=== PATIENT | female | born 1975 | race Two or more races ===

== ENCOUNTER 2024-03-11 08:56 | Emergency (ER) | payer MEDICAID, SELFPAY ==
[2024-03-11 09:04] VITALS: BP 106/71; PULSE 74; RESP 16; TEMP 37.1; O2SAT 97; BMI 29.8
--- NOTE | 2024-03-11 09:08 | XR_ITS ---
Examination: PA lateral chest 2 views TECHNIQUE: Upright PA lateral chest 2 views Exam date and time: February 08, 2025 0912 hours Comparison January 09, 2023 INDICATIONS: Coughing fever shortness of breath beginning 6 days ago. FINDINGS: Normal heart size Suspicious for mild pneumonia in the right middle lobe No pulmonary edema IMPRESSION: Suspicious for mild pneumonia in the right middle lobe
--- NOTE | 2024-03-11 09:09 | EDNOTE_ITS ---
Upper Respiratory Inf. RME/HPI General Chief Complaint: Flu Like Symptoms Stated Complaint: COUGH, DIFF BREATHING, BARRETO Time Seen by Provider: 03/11/24 09:10 Source: patient Arrival date/time: 03/11/24 08:56 48-year-old female with a history of hypertension presents to the emergency room with a chief complaint of cough, difficulty breathing, headache x 6 days. Mode of arrival: ambulatory Limitations: no limitations Related Data Home Medications ?Medication ?Instructions ?Recorded ?Confirmed lisinopril 20 1 tab PO QDAY 06/05/22 01/03/23 mg-hydrochlorothiazide 12.5 mg tablet clonazepam 0.5 mg tablet 1 mg PO BID PRN anxiety 12/10/23 12/10/23 Previous Rx's ?Medication ?Instructions ?Recorded acetaminophen 300 mg-codeine 15 mg 1 tab PO Q8H PRN pain #14 tabs 06/07/22 tablet acetaminophen 500 mg tablet 500 mg PO Q6H PRN fever or pain 06/07/22 #30 tabs acetaminophen 500 mg tablet 1,000 mg (2 x 500 mg) PO QID PRN 11/16/22 (Tylenol Extra Strength) pain #30 tabs hydroxyzine HCl 50 mg tablet 50 mg PO BID PRN anxiety #30 tabs 11/16/22 rizatriptan 10 mg disintegrating 10 mg PO Q2H PRN migraine headache 01/09/23 tablet (Maxalt-SOCIAL MEDIA EDITOR) #20 tabs diphenhydramine HCl 25 mg capsule 25 mg PO Q8H PRN allergic symptoms 03/24/23 (Benadryl) #30 caps magnesium hydroxide 400 mg/5 mL 20 ml PO TID PRN constipation #355 12/10/23 oral suspension (Milk of Magnesia) mL amoxicillin 875 mg-potassium 1 tab PO BID 7 days #14 tabs 03/11/24 clavulanate 125 mg tablet Allergies Allergy/AdvReac Type Severity Reaction Status Date / Time No Known Allergies Allergy Verified 09/13/23 11:43 Review of Systems Review of Systems Systems Reviewed: All systems reviewed, normal except as documented Constitutional Constitutional: Reports system reviewed and no additional complaints, except as documented, Denies fatigue, Denies fever(s), Reports headache(s) and Denies weakness Eyes Eyes: Reports system reviewed and no additional complaints, except as documented, Denies blurry vision and Denies change in vision ENT Ears, Nose, Mouth, and Throat: Reports system reviewed and no additional complaints, except as documented, Denies otalgia, Reports headache(s), Denies nasal congestion, Denies throat swelling and Denies vertigo Cardiovascular Cardiovascular: Reports system reviewed and no additional complaints, except as documented, Denies chest pain, Reports dyspnea and Denies dyspnea on exertion Respiratory Respiratory: Reports system reviewed and no additional complaints, except as documented, Denies chest congestion, Reports cough, Reports dyspnea, Denies d yspnea on exertion and Denies wheezing Gastrointestinal Gastrointestinal: Reports system reviewed and no additional complaints, except as documented, Denies abdominal pain, Denies cramping, Denies nausea and Denies vomiting Genitourinary Genitourinary: Reports system reviewed and no additional complaints, except as documented Musculoskeletal Musculoskeletal: Reports system reviewed and no additional complaints, except as documented and Denies back pain Integumentary/Breasts Skin/Breast: Reports system reviewed and no additional complaints, except as documented and Denies wounds Neurologic Neurologic: Reports system reviewed and no additional complaints, except as documented, Denies confusion, Reports headache(s), Denies lack of coordination, Denies vertigo and Denies weakness Psychiatric Psychiatric: Reports system reviewed and no additional complaints, except as documented, Denies anxiety, Denies confusion, Denies depression, Denies paranoia, Denies suicidal ideation and Denies tactile hallucinations Endocrine Endocrine: Reports system reviewed and no additional complaints, except as documented and Denies fatigue Hematologic/Lymphatic Hematologic/Lymphatic: Reports system reviewed and no additional complaints, except as documented and Denies lymphadenopathy Allergic/Immunologic Allergic/Immunologic: Reports system reviewed and no additional complaints, except as documented, Denies throat swelling, Denies urticaria and Denies wheezing Past Medical History Past Medical History NEUROLOGIC: Negative Neurological Disorders, Cerebrovascular Accident, Transient Ischemic Attacks (TIA), Dementia, Alzheimer's Disease, Parkinson's Disease, Brain Tumor, Meningitis, Seizures, Epilepsy, Multiple Sclerosis, Cerebral Palsy, Amyotrophic Lateral Sclerosis (ALS/Rubia Gehrig's), Guillain-[place] Syndrome, Spina Bifida, Paralysis, Peripheral Neuropathy, Smart's Palsy, Subdural Hematoma, Migraine, Head Trauma, Spinal Cord Injury or Traumatic Brain Injury CARDIAC: Positive Hypercholesterolemia, Edema and Hypertension; Negative Cardiac Disorders, Myocardial Infarction, Cardiac Arrhythmia, Atrial Fi brillation, Angina, Heart Murmur, Coronary Artery Disease, Atherosclerotic Heart Disease, Peripheral Vascular Disease, Aneurysm, Congestive Heart Failure, Congenital Heart Disease, Valvular Heart Disease, Rheumatic Fever, Cardiomyopathy, Pericarditis, Cellulitis, Deep Vein Thrombosis, Hypotension or Varicose Veins RESPIRATORY: Negative Chronic Obstructive Pulmonary Disease (COPD), Asthma, Bronchitis, Emphysema, Pneumonia, Pulmonary Fibrosis, Cystic Fibrosis, Tuberculosis, Pulmonary Embolism, Pulmonary Edema or Sleep Apnea GASTROINTESTINAL: Positive Colitis and Gastroesophageal Reflux Disease; Negative Gastrointestinal Disorders, Hepatitis, Cirrhosis, Pancreatitis, Celiac Disease, Gall Bladder Disease, Gastrointestinal Bleed, Esophageal Varices, Epps's Esophagus, Ulcerative Colitis, Diverticulitis, Diverticulosis, Ulcer, Colorectal Cancer, Irritable Bowel, Crohn's Disease, Obstructive Bowel, Hiatal Hernia, Hemorrhoids or Obesity GENITOURINARY: Negative Genitourinary Disorders, Renal Disease, Kidney Stones, Polycystic Kidney Disease, Neurogenic Bladder, Inguinal Hernia or Dialysis REPRODUCTIVE: Positive Previous Pregnancies; Negative Breast Cancer, Endometriosis, Genital Herpes, Gonorrhea, Pelvic Inflammatory Disease, Syphilis or Uterine Prolapse MUSCULOSKELETAL: Negative Musculoskeletal Disorders, Muscular Dystrophy, Myasthenia Gravis, Marfan's Syndrome, Bone Cancer, Arthritis, Rheumatoid Arthritis, Osteoporosis, Degenerative Disk Disease, Gout, Scoliosis, Carpal Tunnel Syndrome, Fibromyalgia, Fractures, Degenerative Joint Disease, Osteomyelitis or Poliovirus ENT: Negative Cataracts, Glaucoma, Blind, Retinal Detachment, Macular Degeneration, Ear Infection, Deafness, Head Trauma or Eye Prosthesis ENDOCRINE: Negative Endocrine Disorders, Diabetes Mellitus Type 1, Diabetes Mellitus Type 2, Hypoglycemia, Gavino's Syndrome, Reg's Disease, Hyperthyroidism, Hypothyroidism, Parathyroid Disease, Pituitary Disease, Systemic Lupus Erythematosus, Syndrome of Inappropriate Antidiuretic Hormone (SIADH), Adrenal Disease or Graves' Disease HEMATOLOGIC: Negative Blood Disorders, Anemia, Leukemia, Hemophilia, Thalassemia, Sickle Cell Disease or Clotting Problems PSYCHO/SOCIAL: Positive Anxiety; Negative Psychiatric Problems, Schizophrenia, Recreational Drug Use, Bipolar Disorder, Depression, Behavior Problems, Self-Mutilation, Attention Deficit Disorder, Attention Deficit Hyperactivity Disorder, Depression, Post Traumatic Stress Disorder or Eating Disorder OTHER HISTORY: Positive Measles; Negative Hospitalization, Autoimmune Disease, Down Syndrome, Autism, Developmental Delay, Shingles, Falls, Blood Transfusions, Blood Transfusion Reaction, Anesthesia Reactions, Organ Transplant, Chemotherapy, Radiation Therapy, Hyperbaric Therapy, MRSA, VRSA, Vancomycin-Resistant Enterococci, Human Immunodeficiency Virus (HIV), Chicken Pox, Mumps, Rubella ([place] Measles), Pertussis, Clostridium Difficile, Cancer, Breast Cancer, Cervical Cancer, Colorectal Cancer, Lung Cancer or Ovarian Cancer Family History FAMILY HISTORY: Positive Family Psychiatric Problems; Negative Family Respiratory Disorders, Family Cardiac Disorders, Family Gastrointestinal Problems, Family Cancer, Family Surgery or Family Anesthesia Reaction Surgical History SURGICAL: Positive Hysterectomy and Section; Negative Cardiac Surgery, Open Heart Surgery, Coronary Artery Bypass Graft, Valve Replacement, Vascular Surgery, Coronary Stent, Cardiac Catheterization, Pacemaker, Angiogram, Auto Implanted Cardiovert Defib, Carotid Endarterectomy, Endocrine Surgery, Thyroidectomy, Ear Surgery, Tympanostomy Tube, Eye Surgery, Nose Surgery, Oral Surgery, Tonsillectomy, Adenoidectomy, Cochlear Implant, Corneal Transplant, Throat Surgery, Abdominal Surgery, Tracheostomy, Gastric Bypass Surgery, Gastrostomy, Bowel Surgery, Nephrectomy, Joint Replacement, Amputation, Open Reduction Internal Fixation, Arthroscopy, Neurologic Surgery, Brain Shunt, Mastectomy, Lumpectomy, Tubal Ligation or Organ Transplant Social History SMOKING STATUS: Never smoker ED Exam General Limitations: Present no limitations General appearance: Present alert and in no apparent distress Head Head exam: Present atraumatic, normocephalic and normal inspection Eye Eye exam: Present normal appearance, PERRL and EOMI ENT ENT exam: Present normal exam, normal oropharynx and mucous membranes moist Neck Neck exam: Present normal inspection, full ROM and trachea midline Chest Chest inspection: Present normal inspection and symmetric chest wall rise Respiratory Respiratory exam: Present normal lung sounds bilaterally; Absent respiratory distress, wheezes, stridor, accessory muscle use or prolonged expiratory phase Cardiovascular Cardiovascular exam: Present regular rate, normal rhythm and normal heart sounds Abdominal Exam Abdominal exam: Present soft and normal bowel sounds Extremities Exam Extremities exam: Present normal inspection and full ROM Back Exam Back exam: Present normal inspection and full ROM Neurological Exam Neurological exam: Present alert, oriented X3 and CN II-XII intact Psychiatric Psychiatric exam: Present normal affect and normal mood Skin Skin exam: Present warm, dry, intact and normal color Course Quality Measures none Orders Category Date Time Status Bedside COVID-19 Antigen Test NOW Care 03/11/24 09:08 Completed Bedside Influenza A&B Antigen Test NOW Care 03/11/24 09:08 Completed XR chest 2V Stat Exams 03/11/24 09:08 Completed Vital Signs Vital signs: Vital Signs Temperature 98.7 F 03/11/24 09:04 Pulse Rate 74 03/11/24 09:04 Respiratory Rate 16 03/11/24 09:04 Blood Pressure 106/71 03/11/24 09:04 Pulse Oximetry (%) 97 03/11/24 09:04 Oxygen Delivery Method Room Air 03/11/24 09:04 O2 saturation 97% within normal limits Upper Respiratory Infection MDM Narrative MDM Narrative:: 48-year-old female with a history of hypertension presents to the emergency room with a chief complaint of cough, difficulty breathing, headache x 6 days. Clinically the patient appears nontoxic and in no apparent distress. Physical examination shows clear bilateral lung sounds with no wheezing stridor or respiratory distress. Chest x-ray was completed and shows early pneumonia. Antibiotics are sent to the patient's pharmacy patient was discharged and educated to follow-up with primary care provider and return to the emergency room for any evidence of worsening signs or symptoms Patient data External records reviewed:: [facility] previous records Clinical information provided by:: patient Social determinants that could affect healthcare access:: none Patient has the following chronic illnesses:: No chronic illness How is presenting disease/condition affected by chronic disease/condition?: no chronic disease Evaluation data The following diagnostics were reviewed and interpreted by me:: lab results and radiology exam(s) Lab and/or radiology exams considered but not ordered:: Labs and radiology exams considered and ordered Interpretation Summary: Chest [id number]: Normal heart size Suspicious for mild pneumonia in the right middle lobe No pulmonary edema IMPRESSION: Suspicious for mild pneumonia in the right middle lobe Medications / Prescriptions Medications or Prescriptions considered but not ordered:: Medication not given Medication administrations:: Medication not given Consultations Consultation(s) initiated? (list below): No Diagnosis Upper Respiratory Differential Diagnosis: upper respiratory infection, sinus itis, viral infection, influenza, pharyngitis and other (Community-acquired pneumonia) Most likely diagnosis given after review of the tests above:: Community-acquired pneumonia Admission Indicated Admission indicated?: not indicated Admission Request Was there a request for admission?: No Disposition Plan Disposition Plan: Discharge Discharge Attestation Discharge Attestation: The patient and all family members were given an opportunity to ask questions and understood the discharge instructions. Discharge instructions specifically effects, indications for sooner follow up or return to the emergency department, and the expected course of current diagnosis. Patient condition: Stable Discharge Plan Plan Patient Disposition: HOME (Self Care) Disposition Comment: Stable Prescriptions/Referrals Prescriptions/Med Rec: New amoxicillin-pot clavulanate 875-125 mg tablet 1 tab PO BID 7 Days Qty: 14 0RF No Action lisinopril-hydrochlorothiazide 20-12.5 mg Tablet 1 tab PO QDAY acetaminophen-codeine 300-15 mg tablet 1 tab PO Q8H PRN (Reason: pain) Qty: 14 0RF acetaminophen 500 mg tablet 500 mg PO Q6H PRN (Reason: fever or pain) Qty: 30 0RF hydroxyzine HCl 50 mg tablet 50 mg PO BID PRN (Reason: anxiety) Qty: 30 0RF acetaminophen [Tylenol Extra Strength] 500 mg tablet 1,000 mg PO QID PRN (Reason: pain) Qty: 30 0RF rizatriptan [Maxalt-[employer]IAL MEDIA EDITOR] 10 mg tablet,disintegrating 10 mg PO Q2H PRN (Reason: migraine headache) Qty: 20 0RF Rx Instructions: do not exceed 3 doses per 24 hrs diphenhydramine HCl [Benadryl] 25 mg capsule 25 mg PO Q8H PRN (Reason: allergic symptoms) Qty: 30 0RF clonazepam 0.5 mg tablet 1 mg PO BID PRN (Reason: anxiety) magnesium hydroxide [Milk of Magnesia] 400 mg/5 mL suspension 20 ml PO TID PRN (Reason: constipation) Qty: 355 0RF Referrals: Vicky Wolfe FNP [Primary Care Provider] - In 1 week Problem List Clinical Impression: Community acquired pneumonia Patient/Caregiver Discharge Instructions Education Materials: ED Pneumonia (Adult) Additional Instructions: Puneet un seguimiento con abraham proveedor de atenci?n primaria en las pr?ximas 24 a 48 horas. Los resultados de las radiograf?as fueron positivos para infiltrados neum?nicos. Los antibi?ticos se env?an a abraham farmacia por favor rec?jalos y t?melos osmin se indica. Si hay evidencia de signos o s?ntomas que empeoran, regrese a la britta de emergencias de inmediato. Print Language: Nepali Stand Alone Forms: Trish Award Info., Patient Portal Info Letter PA/NETWORK DEVELOPMENT COORDINATOR Supervising Physician PA/NETWORK DEVELOPMENT COORDINATOR Supervising Physician: Dr. Berry
== END 2024-03-11 11:40 | disposition home or self-care (01) ==
PROVIDERS: Emergency Provider Emergency Medicine; PCP Nurse Practitioner Family
DX: J18.9 Pneumonia, unspecified organism (principal)
CPT/HCPCS: 71046; 99283

== ENCOUNTER 2024-04-09 17:17 | Emergency (ER) | payer MEDICAID, SELFPAY ==
[2024-04-09 17:49] VITALS: BP 115/77; PULSE 63; RESP 18; TEMP 36.8; O2SAT 99
[2024-04-09 17:51] VITALS: BMI 30.4
--- NOTE | 2024-04-09 17:55 | EKG_ITS ---
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
--- NOTE | 2024-04-09 17:55 | XR_ITS ---
Examination: PA lateral chest 2 views Technique: Upright PA lateral chest 2 views Exam date and time: April 09, 2024 1808 hrs. Indications: Chest pain beginning 2 days ago. Findings: Normal heart size Lungs are clear. The osseous structures are intact Impression: No active disease
--- NOTE | 2024-04-09 17:55 | PD.EDRME ---
Rapid Medical Screening Exam E Arrival date/time: 04/09/24 17:17 49-year-old female with a history of hypertension presents to the emergency room with a chief complaint of 8 out of 10 sternal chest pain that radiates up her right neck x 1 hour. I have greeted and performed a focused initial assessment of this patient. A comprehensive ED assessment and evaluation of the patient, analysis of all test results, and completion of the medical decision making process will be conducted by additional ED providers. Chief Complaint: Chest Pain Vital signs: Vital Signs Temperature 98.2 F 04/09/24 17:49 Pulse Rate 63 04/09/24 17:49 Respiratory Rate 18 04/09/24 17:49 Blood Pressure 115/77 04/09/24 17:49 Pulse Oximetry (%) 99 04/09/24 17:49 Oxygen Delivery Method Room Air 04/09/24 17:49 Vital signs reviewed by provider: Yes
[2024-04-09 18:35] LABS: Collection Type, Urine Clean Catch
[2024-04-09 18:49] LABS: Basophils % (Auto) 1 % (0-2.5); Eosinophils # (Auto) 0.2 Thou/mm3 (0.0-0.5); Eosinophils % (Auto) 3 % (0-10); Hematocrit 36.4 % (36.0-46.0); Hemoglobin 12.9 g/dL (12.0-16.0); Immature Granulocytes % (Auto) 0 % (0-0); Immature Granulocytes Auto 0.03 Thou/mm3 (0.00-0.00); Lymphocytes # (Auto) 2.6 Thou/mm3 (1.0-4.8); Lymphocytes % (Auto) 39 % (10-50); Mean Corpuscular HGB Conc 35.4 g/dl (31.0-37.0); Mean Corpuscular Hemoglobin 30.4 pg (25.0-35.0); Mean Corpuscular Volume 86 fL (80-100); Monocytes # (Auto) 0.6 Thou/mm3 (0.0-0.8); Monocytes % (Auto) 8 % (0-12); Neutrophils # (Auto) 3.3 Thou/mm3 (1.8-7.7); Neutrophils % (Auto) 49 % (37-80); Nucleated Red Blood Cell % 0 /100 WBC (0); Platelet Count 246 Thou/mm3 (140-440); RDW Standard Deviation 38.1 fL (36.4-46.3); Red Blood Count 4.24 Miln/mm3 (4.00-5.20); White Blood Count 6.8 Thou/mm3 (3.6-11.0)
[2024-04-09 18:51] LABS: Bilirubin,Urine Negative (Negative); Blood,Urine Negative (Negative); Clarity,Urine Clear (Clear/Hazy); Color,Urine Colorless (Lt Yel-Yel); Glucose, Urine Negative (Negative); Ketones,Urine Negative (Negative); Leukocyte Esterase,Urine Negative (Negative); Nitrite,Urine Negative (Negative); PH,Urine 6.5 (5.0-7.0); Protein,Urine Negative (Neg - Trace); RBC,Urine 1 /hpf (0-3); Specific Gravity,Urine 1.004 (1.001-1.035); Squamous Epithelial Cell,Urine < 1 /hpf (0-5); Urobilinogen,Urine Negative mg/dL (0.0-1.0); WBC,Urine < 1 /hpf (0-5)
[2024-04-09 19:01] LABS: B-Type Natriuretic Peptide < 20 pg/mL (0-100)
[2024-04-09 19:02] LABS: Alanine Aminotransferase 25 U/L (10-49); Albumin, Serum 4.3 gm/dL (3.5-5.0); Albumin/Globulin Ratio 1.5 (1.2-2.2); Alkaline Phosphatase 129 U/L (46-116); Anion Gap 7 (7-16); Aspartate Amino Transferase 24 U/L (0-34); BUN/Creatinine Ratio 17 Ratio (12-20); Bilirubin,Total 0.3 mg/dL (0.3-1.2); Blood Urea Nitrogen 10 mg/dL (9-23); Calcium 9.2 mg/dL (8.3-10.6); Calcium (Corrected) 9.2 mg/dL (8.5-10.1); Carbon Dioxide 27.2 mMol/L (20.0-31.0); Chloride 103 mMol/L (98-107); Creatinine (Component) 0.6 mg/dL (0.6-1.3); Estimated Creatinine Clearance 103.7 mL/min (>60); Globulin 2.8 gm/dL (2.3-3.5); Glucose 94 mg/dL (74-106); Osmolality,Calculated 272 (275-295); Potassium 3.9 mMol/L (3.4-5.1); Sodium 137 mMol/L (136-145); Total Protein 7.1 gm/dL (5.7-8.2); Troponin I < 0.020 ng/mL (0.0-0.045); eGFR > 60 See Note
[2024-04-09 19:46] VITALS: BP 103/67; PULSE 63; RESP 16; TEMP 36.7; O2SAT 99
--- NOTE | 2024-04-09 23:04 | EDNOTE_ITS ---
ED Chest Pain RME/HPI General Chief Complaint: Chest Pain Stated Complaint: ANXIETY, HEART FEELS LIKE ITS BURNING Time Seen by Provider: 04/09/24 19:24 Arrival date/time: 04/09/24 17:17 RME / HPI RME / HPI narrative: 04/09/24 17:17 49-year-old female with a history of hypertension presents to the emergency room with a chief complaint of 8 out of 10 sternal chest pain that radiates up her right neck x 1 hour. I have greeted and performed a focused initial assessment of this patient. A comprehensive ED assessment and evaluation of the patient, analysis of all test results, and completion of the medical decision making process will be conducted by additional ED providers. ------- Dr. Chow?s Main ED Evaluation: 49yo female with a history of HTN, anxiety presents to the ED for multiple vague complaints. Patient sttaes she felt that my pulse was low and my heart was burning , reporting she felt generally weak. She states she did take her anxiety medication today, but states she felt worse than usual, so she came in for evaluation. She denies any shortness of breath, nausea, vomiting or any other associated symptoms. No known allergies. Patient states she feels better since arriving to the ED. PCP: [facility] Related Data Home Medications ?Medication ?Instructions ?Recorded ?Confirmed lisinopril 20 1 tab PO QDAY 06/05/2201/03 mg-hydrochlorothiazide 12.5 mg tablet clonazepam 0.5 mg tablet 1 mg PO BID PRN anxiety 1010/2512/10/23 Previous Rx's ?Medication ?Instructions ?Recorded acetaminophen 300 mg-codeine 15 mg 1 tab PO Q8H PRN pa in #14 tabs 06/07/22 tablet acetaminophen 500 mg tablet 500 mg PO Q6H PRN fever or pain 06/07/22 #30 tabs acetaminophen 500 mg tablet 1,000 mg (2 x 500 mg) PO Q ID PRN 11/16/22 (Tylenol Extra Strength) pain #30 tabs hydroxyzine HCl 50 mg tablet 50 mg PO BID PRN anxiety #30 tabs 11/16/22 rizatriptan 10 mg disintegrating 10 mg PO Q2H PRN [place] headache 01/09/23 tablet (Maxalt-QUALITY ASSURANCE TECHNICIAN) #20 tabs diphenhydramine HCl 25 mg capsule 25 mg PO Q8H PRN all ergic symptoms 03/24/23 (Benadryl) #30 caps magnesium hydroxide 400 mg/5 mL 20 ml PO TID PRN const ipation #355 12/10/23 oral suspension (Milk of Magnesia) mL Allergies Allergy/AdvReac Type Severity Reaction Status Date / Time No Known Allergies Allergy Verified 09/13/23 11:43 Review of Systems Review of Systems Systems Reviewed: All systems reviewed, normal except as documented Past Medical History Past Medical History NEUROLOGIC: Negative Neurological Disorders, Cerebrovascular Accident, Transient Ischemic Attacks (TIA), Dementia, Alzheimer's Disease, Parkinson's Disease, Brain Tumor, Meningitis, Seizures, Epilepsy, Multiple Sclerosis, Cerebral Palsy, Amyotrophic Lateral Sclerosis (ALS/Rubia Gehrig's), Guillain-Christmas Syndrome, Spina Bifida, Paralysis, Peripheral Neuropathy, Smart's Palsy, Subdural Hematoma, Migraine, Head Trauma, Spinal Cord Injury or Traumatic Brain Injury CARDIAC: Positive Hypercholesterolemia, Edema and Hypertension; Negative Cardiac Disorders, Myocardial Infarction, Cardiac Arrhythmia, Atrial F ibrillation, Angina, Heart Murmur, Coronary Artery Disease, Atherosclerotic Heart Disease, Peripheral Vascular Disease, Aneurysm, Congestive Heart Failure, Congenital Heart Disease, Valvular Heart Disease, Rheumatic Fever, Cardiomyopathy, Pericarditis, Cellulitis, Deep Vein Thrombosis, Hypotension or Varicose Veins RESPIRATORY: Negative Chronic Obstructive Pulmonary Disease (COPD), Asthma, Bronchitis, Emphysema, Pneumonia, Pulmonary Fibrosis, Cystic Fibrosis, Tuberculosis, Pulmonary Embolism, Pulmonary Edema or Sleep Apnea GASTROINTESTINAL: Positive Colitis and Gastroesophageal Reflux Disease; Negative Gastrointestinal Disorders, Hepatitis, Cirrhosis, Pancreatitis, Celiac Disease, Gall Bladder Disease, Gastrointestinal Bleed, Esophageal Varices, Epps's Esophagus, Ulcerative Colitis, Diverticulitis, Diverticulosis, Ulcer, Colorectal Cancer, Irritable Bowel, Crohn's Disease, Obstructive Bowel, Hiatal Hernia, Hemorrhoids or Obesity GENITOURINARY: Negative Genitourinary Disorders, Renal Disease, Kidney Stones, Polycystic Kidney Disease, Neurogenic Bladder, Inguinal Hernia or Dialysis REPRODUCTIVE: Positive Previous Pregnancies; Negative Breast Cancer, Endometriosis, Genital Herpes, Gonorrhea, Pelvic Inflammatory Disease, Syphilis or Uterine Prolapse MUSCULOSKELETAL: Negative Musculoskeletal Disorders, Muscular Dystrophy, Myasthenia Gravis, Marfan's Syndrome, Bone Cancer, Arthritis, Rheumatoid Arthritis, Osteoporosis, Degenerative Disk Disease, Gout, Scoliosis, Carpal Tunnel Syndrome, Fibromyalgia, Fractures, Degenerative Joint Disease, Osteomyelitis or Poliovirus ENT: Negative Cataracts, Glaucoma, Blind, Retinal Detachment, Macular Degeneration, Ear Infection, Deafness, Head Trauma or Eye Prosthesis ENDOCRINE: Negative Endocrine Disorders, Diabetes Mellitus Type 1, Diabetes Mellitus Type 2, Hypoglycemia, [place]'s Syndrome, Lamont's Disease, Hyperthyroidism, Hypothyroidism, Parathyroid Disease, Pituitary Disease, Systemic Lupus Erythematosus, Syndrome of Inappropriate Antidiuretic Hormone (SIADH), Adrenal Disease or Graves' Disease HEMATOLOGIC: Negative Blood Disorders, Anemia, Leukemia, Hemophilia, Thalassemia, Sickle Cell Disease or Clotting Problems PSYCHO/SOCIAL: Positive Anxiety; Negative Psychiatric Problems, Schizophrenia, Recreational Drug Use, Bipolar Disorder, Depression, Behavior Problems, Self-Mutilation, Attention Deficit Disorder, Attention Deficit Hyperactivity Disorder, Depression, Post Traumatic Stress Disorder or Eating Disorder OTHER HISTORY: Positive Measles; Negative Hospitalization, Autoimmune Disease, Down Syndrome, Autism, Developmental Delay, Shingles, Falls, Blood Transfusions, Blood Transfusion Reaction, Anesthesia Reactions, Organ Transplant, Chemotherapy, Radiation Therapy, Hyperbaric Therapy, MRSA, VRSA, Vancomycin-Resistant Enterococci, Human Immunodeficiency Virus (HIV), Chicken Pox, Mumps, Rubella (Hebrew Measles), Pertussis, Clostridium Difficile, Cancer, Breast Cancer, Cervical Cancer, Colorectal Cancer, Lung Cancer or Ovarian Cancer Family History FAMILY HISTORY: Positive Family Psychiatric Problems; Negative Family Respiratory Disorders, Family Cardiac Disorders, Family Gastrointestinal Problems, Family Cancer, Family Surgery or Family Anesthesia Reaction Surgical History SURGICAL: Positive Hysterectomy and Section; Negative Cardiac Surgery, Open Heart Surgery, Coronary Artery Bypass Graft, Valve Replacement, Vascular Surgery, Coronary Stent, Cardiac Catheterization, Pacemaker, Angiogram, Auto Implanted Cardiovert Defib, Carotid Endarterectomy, Endocrine Surgery, Thyroidectomy, Ear Surgery, Tympanostomy Tube, Eye Surgery, Nose Surgery, Oral Surgery, Tonsillectomy, Adenoidectomy, Cochlear Implant, Corneal Transplant, Throat Surgery, Abdominal Surgery, Tracheostomy, Gastric Bypass Surgery, Gastrostomy, Bowel Surgery, Nephrectomy, Joint Replacement, Amputation, Open Reduction Internal Fixation, Arthroscopy, Neurologic Surgery, Brain Shunt, Mastectomy, Lumpectomy, Tubal Ligation or Organ Transplant Social History SMOKING STATUS: Never smoker ED Exam Narrative Physical exam: GENERAL APPEARANCE: alert and oriented x 4, well-developed, well-nourished, no acute distress VITALS: All vitals were reviewed and the pulse ox is 99% on room air, which is normal according to my interpretation. HEENT: Normocephalic, atraumatic; pupils equal, round, reactive to light; EOMI; mucous membranes pink, moist; oropharynx clear NECK: Supple LUNGS: CTABL; no wheezes, no rales, no rhonchi HEART: Regular rate, regular rhythm; normal S1, S2; no murmurs ABDOMEN: non distended; normal BS; soft, no tenderness, no guarding, no rebound; no masses, no organomegaly, no hernia BACK: no CVA tenderness EXTREMITIES: atraumatic; no edema NEUROLOGIC: awake; alert and oriented x4; cranial nerves II-XII grossly intact; no focal sensory or motor deficits PSYCHIATRIC: appropriate mood and affect SKIN: warm, dry, normal color; no rashes Course Course Course Narrative: CXR is ordered for determining the etiology of chest pain. Quality Measures none Orders Category Date Time Status EKG (ED ONLY) *Do not use* NOW Care 04/09/24 17:55 Completed EKG (ED Only) Stat Exams 04/09/24 17:55 Draft XR chest 2V Stat Exams 04/09/24 17:55 Completed B-Type Natriuretic Peptide Stat Lab 04/09/24 18:25 Completed CBC Stat Lab 04/09/24 18:25 Completed Comprehensive Metabolic Panel Stat Lab 04/09/24 18:25 Completed Magnesium Stat Lab 04/09/24 18:25 Completed Troponin I Stat Lab 04/09/24 18:25 Completed Urinalysis Stat Lab 04/09/24 18:25 Completed Vital Signs Vital signs: Vital Signs Temperature 98.2 F 04/09/24 17:49 Pulse Rate 63 04/09/24 17:49 Respiratory Rate 18 04/09/24 17:49 Blood Pressure 115/77 04/09/24 17:49 Pulse Oximetry (%) 99 04/09/24 17:49 Oxygen Delivery Method Room Air 04/09/24 17:49 Chest Pain MDM Narrative MDM Narrative:: Scribe Attestation: 04/09/24 Milagros Barba am scribing for and in the presence of Dr. Chow. Patient data External records reviewed:: [facility] previous records (Per chart review, patient was seen here on 03/11/24 for pneumonia.) Clinical information provided by:: patient Social determinants that could affect healthcare access:: none Patient has the following chronic illnesses:: HTN, GERD How is presenting disease/condition affected by chronic disease/condition?: uneffected by Evaluation data The following diagnostics were reviewed and interpreted by me:: lab results, radiology exam(s) and EKG tracing(s) Lab and/or radiology exams considered but not ordered:: none Interpretation Summary: CBC is normal, CMP is normal, troponin is normal, BNP is normal, UA is unremarkable, according to my interpretation. CXR shows normal cardiac silhouette, normal sharp diaphragmatic edge, no infiltrates, normal costophrenic angles, according to my interpretation. EKG done at 1816, NSR, rate of 60, normal axis, no ectopy, no acute ischemia, according to my interpretation. [facility] Report Signed Patient: MARY ANN VALLEJO Record#: [id number] Birthdate: 1975 Age/Sex: 49 / F Location: [facility] Attending Dr: Ordering Physician: Caden Pearl Date of Service: 04/09/24 Procedure(s): XR chest 2V Accession Number(s): [id number] cc: Caden Pearl; Cosmo Graves MD~ Examination: PA lateral chest 2 views Technique: Upright PA lateral chest 2 views Exam date and time: April 09, 2024 1808 hrs. Indications: Chest pain beginning 2 days ago. Findings: Normal heart size Lungs are clear. The osseous structures are intact Impression: No active disease Dictated By: Cosmo Graves MD Signed By: <Electronically signed by Cosmo Graves MD in OV> 04/09/24 1915 Medications / Prescriptions Medications or Prescriptions considered but not ordered:: none Medication administrations:: see above, if any Consultations Consultation(s) initiated? (list below): No Diagnosis Chest Pain Differential Diagnosis: other (anxiety reaction, bradycardia dysrhythmia, palpitations) Most likely diagnosis given after review of the tests above:: see below Admission Indicated Admission indicated?: not indicated Admission Request Was there a request for admission?: No Disposition Plan Disposition Plan: Discharge Discharge Attestation Discharge Attestation: The patient and all family members were given an opportunity to ask questions and understood the discharge instructions. Discharge instructions specifically effects, indications for sooner follow up or return to the emergency department, and the expected course of current diagnosis. Patient condition: Stable Discharge Plan Plan Patient Disposition: HOME (Self Care) Disposition Comment: Stable for discharge Patient condition on transfer: Stable Prescriptions/Referrals Prescriptions/Med Rec: No Action lisinopril-hydrochlorothiazide 20-12.5 mg Tablet 1 tab PO QDAY acetaminophen-codeine 300-15 mg tablet 1 tab PO Q8H PRN (Reason: pain) Qty: 14 0RF acetaminophen 500 mg tablet 500 mg PO Q6H PRN (Reason: fever or pain) Qty: 30 0RF hydroxyzine HCl 50 mg tablet 50 mg PO BID PRN (Reason: anxiety) Qty: 30 0RF acetaminophen [Tylenol Extra Strength] 500 mg tablet 1,000 mg PO QID PRN (Reason: pain) Qty: 30 0RF rizatriptan [Maxalt-QUALITY ASSURANCE TECHNICIAN] 10 mg tablet,disintegrating 10 mg PO Q2H PRN (Reason: migraine headache) Qty: 20 0RF Rx Instructions: do not exceed 3 doses per 24 hrs diphenhydramine HCl [Benadryl] 25 mg capsule 25 mg PO Q8H PRN (Reason: allergic symptoms) Qty: 30 0RF clonazepam 0.5 mg tablet 1 mg PO BID PRN (Reason: anxiety) magnesium hydroxide [Milk of Magnesia] 400 mg/5 mL suspension 20 ml PO TID PRN (Reason: constipation) Qty: 355 0RF Referrals: Leonor Melvin FNP-C [Primary Care Provider] - In 1 week Problem List Clinical Impression: Heart palpitations Patient/Caregiver Discharge Instructions Discharge Activity: activity as tolerated Education Materials: ED Palpitations Additional Instructions: Return to the emergency department for any worsening or any further medical problems Otherwise you should follow-up with your primary care doctor within the next several days. Print Language: Montenegrin Stand Alone Forms: Trish Award Info., Patient Portal Info Letter
[2024-04-09 23:07] VITALS: BP 96/62; PULSE 62; RESP 16; TEMP 36.4; O2SAT 97
== END 2024-04-09 23:33 | disposition home or self-care (01) ==
PROVIDERS: Nurse Practitioner Family; Emergency Provider Emergency Medicine
DX: R00.2 Palpitations (principal); R07.89 Other chest pain; I10 Essential (primary) hypertension; F41.9 Anxiety disorder, unspecified
CPT/HCPCS: 36415; 71046; 80053; 81001; 83735; 83880; 84484; 85025; 93005; 99283

== ENCOUNTER → 2024-06-03 | Outpatient (CLI) | payer MEDICAID, SELFPAY ==
--- NOTE | 2024-06-03 11:45 | XR_ITS ---
Examination: Screening digital mammography, bilateral Computer aided detection 3-D breast Tomosynthesis, bilateral Date and time of exam: June 03, 2024 1202 hours Comparison April 06, 2020 Indication: Screening Technique: Nonmagnified MLO, CC views of the breasts to been obtained, reconstructed from 3-D Tomosynthesis images. R2 computer aided detection program utilized for evaluation of suspicious masses and/or abnormal calcifications. 3-D Tomosynthesis images obtained. Findings: The breasts are heterogeneously dense, which may obscure small masses Benign calcifications No interval suspicious masses Impression: BI-RADS category II: Benign Findings. Recommend 1 year follow-up mammogram.
== END | disposition home or self-care (01) ==
DX: Z12.31 Encounter for screening mammogram for malignant neoplasm of breast (principal); R92.323 Mammographic fibroglandular density, bilateral breasts; R92.1 Mammographic calcification found on diagnostic imaging of breast
CPT/HCPCS: 77063; 77067

== ENCOUNTER 2024-07-20 10:41 | Emergency (ER) | payer MEDICAID, SELFPAY ==
[2024-07-20 11:22] VITALS: BP 109/73; PULSE 62; RESP 18; TEMP 36.8; O2SAT 97; BMI 31.1
--- NOTE | 2024-07-20 11:22 | XR_ITS ---
Examination: PA lateral chest 2 views TECHNIQUE: Upright PA lateral chest 2 views Date and time: July 20, 2024 1243 hours INDICATIONS: Coughing beginning 4 days ago. FINDINGS: Pneumonia in the lingular segment left upper lobe Normal heart size Right lung clear IMPRESSION: Pneumonia lingular segment left upper lobe
--- NOTE | 2024-07-20 11:22 | PD.EDURI ---
Upper Respiratory Inf. RME/HPI General Chief Complaint: Flu Like Symptoms Stated Complaint: COUGH WITH LUNG PAIN X4 DAYS Time Seen by Provider: 07/20/24 11:09 Source: patient Arrival date/time: 07/20/24 10:41 49-year-old female with no known medical history presents to the emergency room with a chief complaint of cough x 4 days Mode of arrival: ambulatory Limitations: no limitations Related Data Home Medications ?Medication ?Instructions ?Recorded ?Confirmed lisinopril 20 1 tab PO QDAY 06/05/22 01/03/23 mg-hydrochlorothiazide 12.5 mg tablet clonazepam 0.5 mg tablet 1 mg PO BID PRN anxiety 12/10/23 12/10/23 Previous Rx's ?Medication ?Instructions ?Recorded acetaminophen 300 mg-codeine 15 mg 1 tab PO Q8H PRN pain #14 tabs 06/07/22 tablet acetaminophen 500 mg tablet 500 mg PO Q6H PRN fever or pain 06/07/22 #30 tabs acetaminophen 500 mg tablet 1,000 mg (2 x 500 mg) PO QID PRN 11/16/22 (Tylenol Extra Strength) pain #30 tabs hydroxyzine HCl 50 mg tablet 50 mg PO BID PRN anxiety #30 tabs 11/16/22 rizatriptan 10 mg disintegrating 10 mg PO Q2H PRN migraine headache 01/09/23 tablet (Maxalt-[employer]) #20 tabs diphenhydramine HCl 25 mg capsule 25 mg PO Q8H PRN allergic symptoms 03/24/23 (Benadryl) #30 caps magnesium hydroxide 400 mg/5 mL 20 ml PO TID PRN constipation #355 12/10/23 oral suspension (Milk of Magnesia) mL amoxicillin 875 mg-potassium 1 tab PO BID 7 days #14 tabs 07/20/24 clavulanate 125 mg tablet Allergies Allergy/AdvReac Type Severity Reaction Status Date / Time No Known Allergies Allergy Verified 09/13/23 11:43 Review of Systems Review of Systems Systems Reviewed: All systems reviewed, normal except as documented Constitutional Constitutional: Reports system reviewed and no additional complaints, except as documented, Denies fatigue, Reports fever(s), Denies headache(s) and Denies weakness Eyes Eyes: Reports system reviewed and no additional complaints, except as documented, Denies blurry vision and Denies change in vision ENT Ears, Nose, Mouth, and Throat: Reports system reviewed and no additional complaints, except as documented, Denies otalgia, Denies headache(s), Denies nasal congestion, Denies throat swelling and Denies vertigo Cardiovascular Cardiovascular: Reports system reviewed and no additional complaints, except as documented, Denies chest pain, Denies dyspnea and Denies dyspnea on exertion Respiratory Respiratory: Reports system reviewed and no additional complaints, except as documented, Reports change in phlegm color, Reports chest congestion, Reports cough, Denies dyspnea, Denies dyspnea on exertion and Denies wheezing Gastrointestinal Gastrointestinal: Reports system reviewed and no additional complaints, except as documented, Denies abdominal pain, Denies cramping, Denies nausea and Denies vomiting Genitourinary Genitourinary: Reports system reviewed and no additional complaints, except as documented Musculoskeletal Musculoskeletal: Reports system reviewed and no additional complaints, except as documented and Denies back pain Integumentary/Breasts Skin/Breast: Reports system reviewed and no additional complaints, except as documented and Denies wounds Neurologic Neurologic: Reports system reviewed and no additional complaints, except as documented, Denies confusion, Denies headache(s), Denies lack of coordination, Denies vertigo and Denies weakness Psychiatric Psychiatric: Reports system reviewed and no additional complaints, except as documented, Denies anxiety, Denies confusion, Denies depression, Denies paranoia, Denies suicidal ideation and Denies tactile hallucinations Endocrine Endocrine: Reports system reviewed and no additional complaints, except as documented and Denies fatigue Hematologic/Lymphatic Hematologic/Lymphatic: Reports system reviewed and no additional complaints, except as documented and Denies lymphadenopathy Allergic/Immunologic Allergic/Immunologic: Reports system reviewed and no additional complaints, except as documented, Denies throat swelling, Denies urticaria and Denies wheezing Past Medical History Past Medical History NEUROLOGIC: Negative Neurological Disorders, Cerebrovascular Accident, Transient Ischemic Attacks (TIA), Dementia, Alzheimer's Disease, Parkinson's Disease, Brain Tumor, Meningitis, Seizures, Epilepsy, Multiple Sclerosis, Cerebral Palsy, Amyotrophic Lateral Sclerosis (ALS/Rubia Gehrig's), Guillain-[place] Syndrome, Spina Bifida, Paralysis, Peripheral Neuropathy, Smart's Palsy, Subdural Hematoma, Migraine, Head Trauma, Spinal Cord Injury or Traumatic Brain Injury CARDIAC: Positive Hypercholesterolemia, Edema and Hypertension; Negative Cardiac Disorders, Myocardial Infarction, Cardiac Arrhythmia, Atrial Fibrillation, Angina, Heart Murmur, Coronary Artery Disease, Atherosclerotic Heart Disease, Peripheral Vascular Disease, Aneurysm, Congestive Heart Failure, Congenital Heart Disease, Valvular Heart Disease, Rheumatic Fever, Cardiomyopathy, Pericarditis, Cellulitis, Deep Vein Thrombosis, Hypotension or Varicose Veins RESPIRATORY: Negative Chronic Obstructive Pulmonary Disease (COPD), Asthma, Bronchitis, Emphysema, Pneumonia, Pulmonary Fibrosis, Cystic Fibrosis, Tuberculosis, Pulmonary Embolism, Pulmonary Edema or Sleep Apnea GASTROINTESTINAL: Positive Colitis and Gastroesophageal Reflux Disease; Negative Gastrointestinal Disorders, Hepatitis, Cirrhosis, Pancreatitis, Celiac Disease, Gall Bladder Disease, Gastrointestinal Bleed, Esophageal Varices, Epps's Esophagus, Ulcerative Colitis, Diverticulitis, Diverticulosis, Ulcer, Colorectal Cancer, Irritable Bowel, Crohn's Disease, Obstructive Bowel, Hiatal Hernia, Hemorrhoids or Obesity GENITOURINARY: Negative Genitourinary Disorders, Renal Disease, Kidney Stones, Polycystic Kidney Disease, Neurogenic Bladder, Inguinal Hernia or Dialysis REPRODUCTIVE: Positive Previous Pregnancies; Negative Breast Cancer, Endometriosis, Genital Herpes, Gonorrhea, Pelvic Inflammatory Disease, Syphilis or Uterine Prolapse MUSCULOSKELETAL: Negative Musculoskeletal Disorders, Muscular Dystrophy, Myasthenia Gravis, Marfan's Syndrome, Bone Cancer, Arthritis, Rheumatoid Arthritis, Osteoporosis, Degenerative Disk Disease, Gout, Scoliosis, Carpal Tunnel Syndrome, Fibromyalgia, Fractures, Degenerative Joint Disease, Osteomyelitis or Poliovirus ENT: Negative Cataracts, Glaucoma, Blind, Retinal Detachment, Macular Degeneration, Ear Infection, Deafness, Head Trauma or Eye Prosthesis ENDOCRINE: Negative Endocrine Disorders, Diabetes Mellitus Type 1, Diabetes Mellitus Type 2, Hypoglycemia, Gavino's Syndrome, Reg's Disease, Hyperthyroidism, Hypothyroidism, Parathyroid Disease, Pituitary Disease, Systemic Lupus Erythematosus, Syndrome of Inappropriate Antidiuretic Hormone (SIADH), Adrenal Disease or Graves' Disease HEMATOLOGIC: Negative Blood Disorders, Anemia, Leukemia, Hemophilia, Thalassemia, Sickle Cell Disease or Clotting Problems PSYCHO/SOCIAL: Positive Anxiety; Negative Psychiatric Problems, Schizophrenia, Recreational Drug Use, Bipolar Disorder, Depression, Behavior Problems, Self-Mutilation, Attention Deficit Disorder, Attention Deficit Hyperactivity Disorder, Depression, Post Traumatic Stress Disorder or Eating Disorder OTHER HISTORY: Positive Measles; Negative Hospitalization, Autoimmune Disease, Down Syndrome, Autism, Developmental Delay, Shingles, Falls, Blood Transfusions, Blood Transfusion Reaction, Anesthesia Reactions, Organ Transplant, Chemotherapy, Radiation Therapy, Hyperbaric Therapy, MRSA, VRSA, Vancomycin-Resistant Enterococci, Human Immunodeficiency Virus (HIV), Chicken Pox, Mumps, Rubella (Sinhala Measles), Pertussis, Clostridium Difficile, Cancer, Breast Cancer, Cervical Cancer, Colorectal Cancer, Lung Cancer or Ovarian Cancer Family History FAMILY HISTORY: Positive Family Psychiatric Problems; Negative Family Respiratory Disorders, Family Cardiac Disorders, Family Gastrointestinal Problems, Family Cancer, Family Surgery or Family Anesthesia Reaction Surgical History SURGICAL: Positive Hysterectomy and Section; Negative Cardiac Surgery, Open Heart Surgery, Coronary Artery Bypass Graft, Valve Replacement, Vascular Surgery, Coronary Stent, Cardiac Catheterization, Pacemaker, Angiogram, Auto Implanted Cardiovert Defib, Carotid Endarterectomy, Endocrine Surgery, Thyroidectomy, Ear Surgery, Tympanostomy Tube, Eye Surgery, Nose Surgery, Oral Surgery, Tonsillectomy, Adenoidectomy, Cochlear Implant, Corneal Transplant, Throat Surgery, Abdominal Surgery, Tracheostomy, Gastric Bypass Surgery, Gastrostomy, Bowel Surgery, Nephrectomy, Joint Replacement, Amputation, Open Reduction Internal Fixation, Arthroscopy, Neurologic Surgery, Brain Shunt, Mastectomy, Lumpectomy, Tubal Ligation or Organ Transplant Social History SMOKING STATUS: Never smoker ED Exam General Limitations: Present no limitations General appearance: Present alert and in no apparent distress Head Head exam: Present atraumatic, normocephalic and normal inspection Eye Eye exam: Present normal appearance, PERRL and EOMI ENT ENT exam: Present normal exam, normal oropharynx and mucous membranes moist Neck Neck exam: Present normal inspection, full ROM and trachea midline Chest Chest inspection: Present normal inspection and symmetric chest wall rise Respiratory Respiratory exam: Present normal lung sounds bilaterally; Absent respiratory distress, wheezes, stridor, accessory muscle use or prolonged expiratory phase Cardiovascular Cardiovascular exam: Present regular rate, normal rhythm and normal heart sounds; Absent tachycardia Abdominal Exam Abdominal exam: Present soft and normal bowel sounds; Absent distention, tenderness or guarding Extremities Exam Extremities exam: Present normal inspection and full ROM Back Exam Back exam: Present normal inspection and full ROM Neurological Exam Neurological exam: Present alert, oriented X3 and CN II-XII intact Psychiatric Psychiatric exam: Present normal affect and normal mood Skin Skin exam: Present warm, dry, intact and normal color Course Quality Measures none Orders Category Date Time Status Bedside COVID-19 Antigen Test NOW Care 07/20/24 11:22 Completed Bedside Influenza A&B Antigen Test NOW Care 07/20/24 11:22 Completed XR chest 2V Stat Exams 07/20/24 11:22 Completed Vital Signs Vital signs: Vital Signs Temperature 98.2 F 07/20/24 11:22 Pulse Rate 62 07/20/24 11:22 Respiratory Rate 18 07/20/24 11:22 Blood Pressure 109/73 07/20/24 11:22 Pulse Oximetry (%) 97 07/20/24 11:22 Oxygen Delivery Method Room Air 07/20/24 11:22 Upper Respiratory Infection MDM Narrative MDM Narrative:: 49-year-old female with no known medical history presents to the emergency room with a chief complaint of cough x 4 days Patient is hemodynamically stable and in no apparent distress Physical examination shows clear bilateral lung sounds there is no wheezing there is no abnormal breath sounds. The patient is afebrile not tachycardic not tachypneic and her O2 is 97 on room air Chest x-ray was completed and shows pneumonia to the left upper lobe. Antibiotics are sent to her pharmacy Patient was discharged and educated to follow-up with primary care provider in the next 24 to 48 hours and return to the emergency room for any evidence of worsening signs or symptoms Patient data External records reviewed:: [facility] previous records Clinical information provided by:: patient Social determinants that could affect healthcare access:: none Patient has the following chronic illnesses:: No chronic illness How is presenting disease/condition affected by chronic disease/condition?: no chronic disease Evaluation data The following diagnostics were reviewed and interpreted by me:: lab results and radiology exam(s) Lab and/or radiology exams considered but not ordered:: Labs and radiology exams considered and ordered Interpretation Summary: Chest [id number]: Pneumonia in the lingular segment left upper lobe Normal heart size Right lung clear IMPRESSION: Pneumonia lingular segment left upper lobe Medications / Prescriptions Medications or Prescriptions considered but not ordered:: No medication given Medication administrations:: No medication given Consultations Consultation(s) initiated? (list below): No Diagnosis Upper Respiratory Differential Diagnosis: upper respiratory infection, viral infection, bronchitis, influenza and other (Community-acquired pneumonia) Most likely diagnosis given after review of the tests above:: Community-acquired pneumonia Admission Indicated Admission indicated?: not indicated Admission Request Was there a request for admission?: No Disposition Plan Disposition Plan: Discharge Discharge Attestation Discharge Attestation: The patient and all family members were given an opportunity to ask questions and understood the discharge instructions. Discharge instructions specifically effects, indications for sooner follow up or return to the emergency department, and the expected course of current diagnosis. Patient condition: Stable Discharge Plan Plan Patient Disposition: HOME (Self Care) Discharge Disposition comment: Stable Prescriptions/Referrals Prescriptions/Med Rec: New amoxicillin-pot clavulanate 875-125 mg tablet 1 tab PO BID 7 Days Qty: 14 0RF No Action lisinopril-hydrochlorothiazide 20-12.5 mg Tablet 1 tab PO QDAY acetaminophen-codeine 300-15 mg tablet 1 tab PO Q8H PRN (Reason: pain) Qty: 14 0RF acetaminophen 500 mg tablet 500 mg PO Q6H PRN (Reason: fever or pain) Qty: 30 0RF hydroxyzine HCl 50 mg tablet 50 mg PO BID PRN (Reason: anxiety) Qty: 30 0RF acetaminophen [Tylenol Extra Strength] 500 mg tablet 1,000 mg PO QID PRN (Reason: pain) Qty: 30 0RF rizatriptan [Maxalt-[employer]] 10 mg tablet,disintegrating 10 mg PO Q2H PRN (Reason: migraine headache) Qty: 20 0RF Rx Instructions: do not exceed 3 doses per 24 hrs diphenhydramine HCl [Benadryl] 25 mg capsule 25 mg PO Q8H PRN (Reason: allergic symptoms) Qty: 30 0RF clonazepam 0.5 mg tablet 1 mg PO BID PRN (Reason: anxiety) magnesium hydroxide [Milk of Magnesia] 400 mg/5 mL suspension 20 ml PO TID PRN (Reason: constipation) Qty: 355 0RF Referrals: David Macias MD [Primary Care Provider] - In 1 week Problem List Clinical Impression: Community acquired pneumonia Patient/Caregiver Discharge Instructions Education Materials: ED Pneumonia (Adult) Additional Instructions: Por favor, consulte con abraham m?dico de cabecera en las pr?ximas 24 a 48 horas. La radiograf?a de t?rax mostr? neumon?a en el lado superior itz. Se le enviar?n antibi?ticos a abraham farmacia; rec?jalos y t?melos seg?n lo indicado. Si observa alg?n empeoramiento de los signos o s?ntomas, acuda a urgencias de inmediato. Print Language: Albanian Stand Alone Forms: Trish Award Info., Patient Portal Info Letter PA/E [employer] Supervising Physician PA/E [employer] Supervising Physician: Dr Mckeon
== END 2024-07-20 12:30 | disposition home or self-care (01) ==
PROVIDERS: Emergency Provider Emergency Medicine; PCP Family Medicine
DX: J18.9 Pneumonia, unspecified organism (principal)
CPT/HCPCS: 71046; 87400; 87811; 99283

== ENCOUNTER 2024-08-10 19:09 | Emergency (ER) | payer MEDICAID, SELFPAY ==
[2024-08-10 20:39] VITALS: BP 109/72; PULSE 62; RESP 16; TEMP 36.7; O2SAT 97
--- NOTE | 2024-08-10 20:45 | EDNOTE_ITS ---
ED Abdominal Pain RME/HPI General Chief Complaint: Abdominal Pain Stated complaint: LOWER ABD PAIN X 3 DAYS Time seen by provider: 08/10/24 20:45 Arrival date/time: 08/10/24 19:09 RME / HPI RME / HPI narrative: 49-year-old female presents to the ED with a complaint of urinary frequency, dysuria, lower pelvic pain, and vaginal itching. She denies any fever or chills, nausea, vomiting, or diarrhea. Related Data Home Medications ?Medication ?Instructions ?Recorded ?Confirmed lisinopril 20 1 tab PO QDAY 06/05/2201/03 mg-hydrochlorothiazide 12.5 mg tablet clonazepam 0.5 mg tablet 1 mg PO BID PRN anxiety 10/2512/10/23 Previous Rx's ?Medication ?Instructions ?Recorded acetaminophen 300 mg-codeine 15 mg 1 tab PO Q8H PRN pa in #14 tabs 06/07/22 tablet acetaminophen 500 mg tablet 500 mg PO Q6H PRN fever or pain 06/07/22 #30 tabs acetaminophen 500 mg tablet 1,000 mg (2 x 500 mg) PO Q ID PRN 11/16/22 (Tylenol Extra Strength) pain #30 tabs hydroxyzine HCl 50 mg tablet 50 mg PO BID PRN anxiety #30 tabs 11/16/22 rizatriptan 10 mg disintegrating 10 mg PO Q2H PRN [place] headache 01/09/23 tablet (Maxalt-DISC PAD GRINDER) #20 tabs diphenhydramine HCl 25 mg capsule 25 mg PO Q8H PRN all ergic symptoms 03/24/23 (Benadryl) #30 caps magnesium hydroxide 400 mg/5 mL 20 ml PO TID PRN const ipation #355 12/10/23 oral suspension (Milk of Magnesia) mL fluconazole 150 mg tablet 150 mg PO Q3D 2 doses #2 tab s 08/11/24 metronidazole 1 % topical gel 1 applic topical QDAY 7 days #60 08/11/24 (Metrogel) grams Allergies Allergy/AdvReac Type Severity Reaction Status Date / Time No Known Allergies Allergy Verified 08/10/24 19:10 Review of Systems Review of Systems Systems Reviewed: All systems reviewed, normal except as documented Past Medical History Past Medical History NEUROLOGIC: Negative Neurological Disorders, Cerebrovascular Accident, Transient Ischemic Attacks (TIA), Dementia, Alzheimer's Disease, Parkinson's Disease, Brain Tumor, Meningitis, Seizures, Epilepsy, Multiple Sclerosis, Cerebral Palsy, Amyotrophic Lateral Sclerosis (ALS/Rubia Gehrig's), Guillain-Nadeau Syndrome, Spina Bifida, Paralysis, Peripheral Neuropathy, Smart's Palsy, Subdural Hematoma, Migraine, Head Trauma, Spinal Cord Injury or Traumatic Brain Injury CARDIAC: Positive Hypercholesterolemia, Edema and Hypertension; Negative Cardiac Disorders, Myocardial Infarction, Cardiac Arrhythmia, Atrial Fibrillation, Angina, Heart Murmur, Coronary Artery Disease, Atherosclerotic Heart Disease, Peripheral Vascular Disease, Aneurysm, Congestive Heart Failure, Congenital Heart Disease, Valvular Heart Disease, Rheumatic Fever, Cardiomyopathy, Pericarditis, Cellulitis, Deep Vein Thrombosis, Hypotension or Varicose Veins RESPIRATORY: Negative Chronic Obstructive Pulmonary Disease (COPD), Asthma, Bronchitis, Emphysema, Pneumonia, Pulmonary Fibrosis, Cystic Fibrosis, Tuberculosis, Pulmonary Embolism, Pulmonary Edema or Sleep Apnea GASTROINTESTINAL: Positive Colitis and Gastroesophageal Reflux Disease; Negative Gastrointestinal Disorders, Hepatitis, Cirrhosis, Pancreatitis, Celiac Disease, Gall Bladder Disease, Gastrointestinal Bleed, Esophageal Varices, Epps's Esophagus, Ulcerative Colitis, Diverticulitis, Diverticulosis, Ulcer, Colorectal Cancer, Irritable Bowel, Crohn's Disease, Obstructive Bowel, Hiatal Hernia, Hemorrhoids or Obesity GENITOURINARY: Negative Genitourinary Disorders, Renal Disease, Kidney Stones, Polycystic Kidney Disease, Neurogenic Bladder, Inguinal Hernia or Dialysis REPRODUCTIVE: Positive Previous Pregnancies; Negative Breast Cancer, Endometriosis, Genital Herpes, Gonorrhea, Pelvic Inflammatory Disease, Syphilis or Uterine Prolapse MUSCULOSKELETAL: Negative Musculoskeletal Disorders, Muscular Dystrophy, Myasthenia Gravis, Marfan's Syndrome, Bone Cancer, Arthritis, Rheumatoid Arthritis, Osteoporosis, Degenerative Disk Disease, Gout, Scoliosis, Carpal Tunnel Syndrome, Fibromyalgia, Fractures, Degenerative Joint Disease, Osteomyelitis or Poliovirus ENT: Negative Cataracts, Glaucoma, Blind, Retinal Detachment, Macular Degeneration, Ear Infection, Deafness, Head Trauma or Eye Prosthesis ENDOCRINE: Negative Endocrine Disorders, Diabetes Mellitus Type 1, Diabetes Mellitus Type 2, Hypoglycemia, [place]'s Syndrome, [place]'s Disease, Hyperthyroidism, Hypothyroidism, Parathyroid Disease, Pituitary Disease, Systemic Lupus Erythematosus, Syndrome of Inappropriate Antidiuretic Hormone (SIADH), Adrenal Disease or Graves' Disease HEMATOLOGIC: Negative Blood Disorders, Anemia, Leukemia, Hemophilia, Thalassemia, Sickle Cell Disease or Clotting Problems PSYCHO/SOCIAL: Positive Anxiety; Negative Psychiatric Problems, Schizophrenia, Recreational Drug Use, Bipolar Disorder, Depression, Behavior Problems, Self-Mutilation, Attention Deficit Disorder, Attention Deficit Hyperactivity Disorder, Depression, Post Traumatic Stress Disorder or Eating Disorder OTHER HISTORY: Positive Measles; Negative Hospitalization, Autoimmune Disease, Down Syndrome, Autism, Developmental Delay, Shingles, Falls, Blood Transfusions, Blood Transfusion Reaction, Anesthesia Reactions, Organ Transplant, Chemotherapy, Radiation Therapy, Hyperbaric Therapy, MRSA, VRSA, Vancomycin-Resistant Enterococci, Human Immunodeficiency Virus (HIV), Chicken Pox, Mumps, Rubella ([place] Measles), Pertussis, Clostridium Difficile, Cancer, Breast Cancer, Cervical Cancer, Colorectal Cancer, Lung Cancer or Ovarian Cancer Family History FAMILY HISTORY: Positive Family Psychiatric Problems; Negative Family Respiratory Disorders, Family Cardiac Disorders, Family Gastrointestinal Problems, Family Cancer, Family Surgery or Family Anesthesia Reaction Surgical History SURGICAL: Positive Hysterectomy and Section; Negative Cardiac Surgery, Open Heart Surgery, Coronary Artery Bypass Graft, Valve Replacement, Vascular Surgery, Coronary Stent, Cardiac Catheterization, Pacemaker, Angiogram, Auto Implanted Cardiovert Defib, Carotid Endarterectomy, Endocrine Surgery, Thyroidectomy, Ear Surgery, Tympanostomy Tube, Eye Surgery, Nose Surgery, Oral Surgery, Tonsillectomy, Adenoidectomy, Cochlear Implant, Corneal Transplant, Throat Surgery, Abdominal Surgery, Tracheostomy, Gastric Bypass Surgery, Gastrostomy, Bowel Surgery, Nephrectomy, Joint Replacement, A mputation, Open Reduction Internal Fixation, Arthroscopy, Neurologic Surgery, Brain Shunt, Mastectomy, Lumpectomy, Tubal Ligation or Organ Transplant Social History SMOKING STATUS: Never smoker ED Exam Narrative Physical exam: Alert and oriented 49-year-old female, no acute distress, afebrile, lungs are clear, regular rate and rhythm without murmurs. Vital signs blood pressure 109/72, pulse 62, respirations 16 and nonlabored, temp 98.0, O2 sat 97% on room air. No CVA tenderness noted. Abdomen is soft with mild bilateral lower pelvic tenderness and suprapubic tenderness. Course Orders Category Date Time Status HCG Qualitative,Urine Stat Lab 08/10/24 20:52 Completed Urinalysis Stat Lab 08/10/24 20:52 Completed Urine Culture Stat Lab 08/10/24 20:52 Received Vital Signs Vital signs: Vital Signs Temperature 98.0 F 08/10/24 20:39 Pulse Rate 62 08/10/24 20:39 Respiratory Rate 16 08/10/24 20:39 Blood Pressure 109/72 08/10/24 20:39 Pulse Oximetry (%) 97 08/10/24 20:39 Oxygen Delivery Method Room Air 08/10/24 20:39 Discharge Plan Plan Patient Disposition: HOME (Self Care) Discharge Disposition comment: Stable Prescriptions/Referrals Prescriptions/Med Rec: New metronidazole [Metrogel] 1 % gel 1 applic topical QDAY 7 Days Qty: 60 0RF fluconazole 150 mg tablet 150 mg PO Q3D Qty: 2 0RF Rx Instructions: may repeat second dose 72 hrs after first dose if symptoms persist No Action lisinopril-hydrochlorothiazide 20-12.5 mg Tablet 1 tab PO QDAY acetaminophen-codeine 300-15 mg tablet 1 tab PO Q8H PRN (Reason: pain) Qty: 14 0RF acetaminophen 500 mg tablet 500 mg PO Q6H PRN (Reason: fever or pain) Qty: 30 0RF hydroxyzine HCl 50 mg tablet 50 mg PO BID PRN (Reason: anxiety) Qty: 30 0RF acetaminophen [Tylenol Extra Strength] 500 mg tablet 1,000 mg PO QID PRN (Reason: pain) Qty: 30 0RF rizatriptan [Maxalt-DISC PAD GRINDER] 10 mg tablet,disintegrating 10 mg PO Q2H PRN (Reason: migraine headache) Qty: 20 0RF Rx Instructions: do not exceed 3 doses per 24 hrs diphenhydramine HCl [Benadryl] 25 mg capsule 25 mg PO Q8H PRN (Reason: allergic symptoms) Qty: 30 0RF clonazepam 0.5 mg tablet 1 mg PO BID PRN (Reason: anxiety) magnesium hydroxide [Milk of Magnesia] 400 mg/5 mL suspension 20 ml PO TID PRN (Reason: constipation) Qty: 355 0RF Referrals: Ngozi,Leonor, [employer] [Primary Care Provider] - In 1 week Problem List Clinical Impression: Dysuria, Vaginitis and vulvovaginitis Patient/Caregiver Discharge Instructions Education Materials: Preventing Vaginitis, ED Dysuria, Uncertain Cause (Adult) Additional Instructions: Chelsea los antibioticos mirza lo prescrito y complete elcurso a pesar de que puede sentirse major. Puneet un seguimiento con abraham medico de atencion primaria en 24 a 48 horas. Regresar al departamento de emergencias por cualquier sintoma nuevo o que empeore. Print Language: Guatemalan Stand Alone Forms: Trish Award Info., Patient Portal Info Letter PA/[employer] Supervising Physician PA/[employer] Supervising Physician: Dr. Moore
[2024-08-10 21:03] LABS: Collection Type, Urine Clean Catch
[2024-08-10 21:22] LABS: HCG Qualitative,Urine Negative
[2024-08-10 21:24] LABS: Bilirubin,Urine Negative (Negative); Blood,Urine Negative (Negative); Clarity,Urine Clear (Clear/Hazy); Color,Urine Lt-Yellow (Lt Yel-Yel); Glucose, Urine Negative (Negative); Ketones,Urine Negative (Negative); Leukocyte Esterase,Urine Positive (Negative); Nitrite,Urine Negative (Negative); Protein,Urine Negative (Neg - Trace); RBC,Urine 2 /hpf (0-3); Specific Gravity,Urine 1.012 (1.001-1.035); Squamous Epithelial Cell,Urine 1 /hpf (0-5); Urobilinogen,Urine Negative mg/dL (0.0-1.0); WBC,Urine 6 /hpf (0-5)
[2024-08-11 00:53] VITALS: BP 135/67; PULSE 78; RESP 18; TEMP 36.6; O2SAT 99
== END 2024-08-11 00:54 | disposition home or self-care (01) ==
PROVIDERS: Physician Assistant; Emergency Provider Emergency Medicine
DX: N76.0 Acute vaginitis (principal); R30.0 Dysuria
CPT/HCPCS: 81001; 81025; 87086; 99283

== ENCOUNTER 2025-01-16 08:43 | Emergency (ER) | payer MEDICAID, SELFPAY ==
[2025-01-16 10:02] VITALS: BP 110/75; PULSE 60; RESP 16; TEMP 36.6; O2SAT 99; BMI 29.8
--- NOTE | 2025-01-16 10:06 | EDNOTE_ITS ---
ED Female Urogenital RME/HPI General Chief complaint: Urogenital-Female Stated complaint: PELVIC PAIN X 3 WEEKS, RECENT UTI, DYSURIA Time Seen by Provider: 01/16/25 10:14 Arrival date/time: 01/16/25 08:43 RME / HPI RME / HPI Narrative: 49-year-old female with past medical history of hysterectomy however she still remains with her ovaries which was performed 3 years ago, strabismus, hypertension, anxiety who presents to the ER complaining of gradually worsening lower abdominal pain x 3 weeks. At onset of symptoms patient was given Macrobid as well as metronidazole without improvement. Denies any abnormal vaginal bleeding or discharge, fever, nausea, vomiting, diarrhea. Related Data Home Medications ?Medication ?Instructions ?Recorded ?Confirmed lisinopril 20 1 tab PO QDAY 06/05/2201/03 mg-hydrochlorothiazide 12.5 mg tablet clonazepam 0.5 mg tablet 1 mg PO BID PRN anxiety 1010/2512/10/23 Previous Rx's ?Medication ?Instructions ?Recorded acetaminophen 300 mg-codeine 15 mg 1 tab PO Q8H PRN pa in #14 tabs 06/07/22 tablet acetaminophen 500 mg tablet 500 mg PO Q6H PRN fever or pain 06/07/22 #30 tabs acetaminophen 500 mg tablet 1,000 mg (2 x 500 mg) PO Q ID PRN 11/16/22 (Tylenol Extra Strength) pain #30 tabs hydroxyzine HCl 50 mg tablet 50 mg PO BID PRN anxiety #30 tabs 11/16/22 rizatriptan 10 mg disintegrating 10 mg PO Q2H PRN migr spring headache 01/09/23 tablet (Maxalt-WIDTH STRIPPER) #20 tabs diphenhydramine HCl 25 mg capsule 25 mg PO Q8H PRN all ergic symptoms 03/24/23 (Benadryl) #30 caps magnesium hydroxide 400 mg/5 mL 20 ml PO TID PRN const ipation #355 12/10/23 oral suspension (Milk of Magnesia) mL fluconazole 150 mg tablet 150 mg PO Q3D 2 doses #2 tab s 08/11/24 doxycycline hyclate 100 mg capsule 100 mg PO BID #14 c aps 01/16/25 Allergies Allergy/AdvReac Type Severity Reaction Status Date / Time No Known Allergies Allergy Verified 01/16/25 08:47 Past Medical History Past Medical History NEUROLOGIC: Negative Neurological Disorders, Cerebrovascular Accident, Transient Ischemic Attacks (TIA), Dementia, Alzheimer's Disease, Parkinson's Disease, Brain Tumor, Meningitis, Seizures, Epilepsy, Multiple Sclerosis, Cerebral Palsy, Amyotrophic Lateral Sclerosis (ALS/Rubia Gehrig's), Guillain-[place] Syndrome, Spina Bifida, Paralysis, Peripheral Neuropathy, Smart's Palsy, Subdural Hematoma, Migraine, Head Trauma, Spinal Cord Injury or Traumatic Brain Injury CARDIAC: Positive Hypercholesterolemia, Edema and Hypertension; Negative Cardiac Disorders, Myocardial Infarction, Cardiac Arrhythmia, Atrial Fibrillation, Angina, Heart Murmur, Coronary Artery Disease, Atherosclerotic Heart Disease, Peripheral Vascular Disease, Aneurysm, Congestive Heart Failure, Congenital Heart Disease, Valvular Heart Disease, Rheumatic Fever, Cardiomyopathy, Pericarditis, Cellulitis, Deep Vein Thrombosis, Hypotension or Varicose Veins RESPIRATORY: Negative Chronic Obstructive Pulmonary Disease (COPD), Asthma, Bronchitis, Emphysema, Pneumonia, Pulmonary Fibrosis, Cystic Fibrosis, Tuberculosis, Pulmonary Embolism, Pulmonary Edema or Sleep Apnea GASTROINTESTINAL: Positive Colitis and Gastroesophageal Reflux Disease; Negative Gastrointestinal Disorders, Hepatitis, Cirrhosis, Pancreatitis, Celiac Disease, Gall Bladder Disease, Gastrointestinal Bleed, Esophageal Varices, Epps's Esophagus, Ulcerative Colitis, Diverticulitis, Diverticulosis, Ulcer, Colorectal Cancer, Irritable Bowel, Crohn's Disease, Obstructive Bowel, Hiatal Hernia, Hemorrhoids or Obesity GENITOURINARY: Negative Genitourinary Disorders, Renal Disease, Kidney Stones, Polycystic Kidney Disease, Neurogenic Bladder, Inguinal Hernia or Dialysis REPRODUCTIVE: Positive Previous Pregnancies; Negative Breast Cancer, Endometriosis, Genital Herpes, Gonorrhea, Pelvic Inflammatory Disease, Syphilis or Uterine Prolapse MUSCULOSKELETAL: Negative Musculoskeletal Disorders, Muscular Dystrophy, Myasthenia Gravis, Marfan's Syndrome, Bone Cancer, Arthritis, Rheumatoid Arthritis, Osteoporosis, Degenerative Disk Disease, Gout, Scoliosis, Carpal Tunnel Syndrome, Fibromyalgia, Fractures, Degenerative Joint Disease, Osteomyelitis or Poliovirus ENT: Negative Cataracts, Glaucoma, Blind, Retinal Detachment, Macular Degeneration, Ear Infection, Deafness, Head Trauma or Eye Prosthesis ENDOCRINE: Negative Endocrine Disorders, Diabetes Mellitus Type 1, Diabetes Mellitus Type 2, Hypoglycemia, [place]'s Syndrome, [place]'s Disease, Hyperthyroidism, Hypothyroidism, Parathyroid Disease, Pituitary Disease, Systemic Lupus Erythematosus, Syndrome of Inappropriate Antidiuretic Hormone (SIADH), Adrenal Disease or Graves' Disease HEMATOLOGIC: Negative Blood Disorders, Anemia, Leukemia, Hemophilia, Thalassemia, Sickle Cell Disease or Clotting Problems PSYCHO/SOCIAL: Positive Anxiety; Negative Psychiatric Problems, Schizophrenia, Recreational Drug Use, Bipolar Disorder, Depression, Behavior Problems, Self-Mutilation, Attention Deficit Disorder, Attention Deficit Hyperactivity Disorder, Depression, Post Traumatic Stress Disorder or Eating Disorder OTHER HISTORY: Positive Measles; Negative Hospitalization, Autoimmune Disease, Down Syndrome, Autism, Developmental Delay, Shingles, Falls, Blood Transfusions, Blood Transfusion Reaction, Anesthesia Reactions, Organ Transplant, Chemotherapy, Radiation Therapy, Hyperbaric Therapy, MRSA, VRSA, Vancomycin-Resistant Enterococci, Human Immunodeficiency Virus (HIV), Chicken Pox, Mumps, Rubella ([place] Measles), Pertussis, Clostridium Difficile, Cancer, Breast Cancer, Cervical Cancer, Colorectal Cancer, Lung Cancer or Ovarian Cancer Family History FAMILY HISTORY: Positive Family Psychiatric Problems; Negative Family Respiratory Disorders, Family Cardiac Disorders, Family Gastrointestinal Problems, Family Cancer, Family Surgery or Family Anesthesia Reaction Surgical History SURGICAL: Positive Hysterectomy and Section; Negative Cardiac Surgery, Open Heart Surgery, Coronary Artery Bypass Graft, Valve Replacement, Vascular Surgery, Coronary Stent, Cardiac Catheterization, Pacemaker, Angiogram, Auto Implanted Cardiovert Defib, Carotid Endarterectomy, Endocrine Surgery, Thyroidectomy, Ear Surgery, Tympanostomy Tube, Eye Surgery, Nose Surgery, Oral Surgery, Tonsillectomy, Adenoidectomy, Cochlear Implant, Corneal Transplant, Throat Surgery, Abdominal Surgery, Tracheostomy, Gastric Bypass Surgery, Gastrostomy, Bowel Surgery, Nephrectomy, Joint Replacement, Amputation, Open Reduction Internal Fixation, Arthroscopy, Neurologic Surgery, Brain Shunt, Mastectomy, Lumpectomy, Tubal Ligation or Organ Transplant Social History SMOKING STATUS: Never smoker ED Exam Narrative Physical exam: Constitutional: Patient alert and oriented. Well appearing. No acute distress. Not toxic appearing. Head: Normocephalic, atraumatic. Eyes: Periorbital regions bilaterally normal to inspection. Conjunctiva clear bilaterally. Sclera anicteric bilaterally. Pupils equal, round, reactive to light bilaterally. Strabismus (chronic for pt) Mouth/Throat: Mucous membranes moist. No stridor or muffled voice. No trismus. Handling secretions without difficulty. Airway widely patent. Neck: Supple. Trachea midline. No JVD. No nuchal rigidity. Normal range of motion. Respiratory: Normal effort. No accessory muscle use or respiratory distress. Lungs clear to auscultation bilaterally without rhonchi, wheezes, or crackles. Cardiovascular: RRR. Normal S1/S2. No murmurs or rubs. Radial pulses intact bilaterally. Abdomen: Soft. Non-distended. + RLQ and LLQ TTP. No pulsatile mass. No guarding or rebound. Negative Norman?s sign. Negative McBurney?s point tenderness. Negative Rovsing?s. Back: No midline tenderness or step-offs. No CVA tenderness to palpation bilaterally. Upper Extremities: No gross deformities. Lower Extremities: No gross deformities. No edema or calf tenderness. Neuro: Speech normal. No gross motor or sensory deficits to upper or lower extremities bilaterally. GCS 15. Skin: Warm, dry, normal color. Psych: Normal affect. Cooperative. Normal insight. 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, physiologic discharge noted, no CMT TTP, no adneza masses or TTP B/L Course Course Course Narrative: MDM: Suspect urethritis vs interstitial cystitis UA negative Vaginal discharge appears to be physiologic and patient was already treated for vaginitis and vaginosis After discussion of risk and benefits of empiric treatment for gonorrhea chlamydia patient is requesting treatment therefore it was provided STI education performed with the patient advised that she and her get full STD testing at her doctor and refrain from intercourse until test of cure The patient presents with abdominal pain complicated by dysuria without definite explanation found on evaluation today. However, there are no signs of peritonitis or other life-threatening or serious etiology. I considered admission; however, given negative work up and imaging, admission is not indicated. The patient appears stable for discharge and has been instructed to return for re-evaluation immediately if the symptoms worsen or change in any way. If the symptoms are not resolved in 24-48 hours, the patient is asked to get rechecked by their PMD or return to the ED. patient also advised to follow- up with a urogynecologist for further evaluation Quality Measures none Orders Category Date Time Status NPO NOW Care 01/16/25 10:19 Active Diet NPO (NOW) Diet 01/16/25 10:[address] abdomen pelvis wo con Stat Exams 01/16/25 10:19 Completed US pelvic complete Stat Exams 01/16/25 11:24 Completed CBC Stat Lab 01/16/25 10:28 Completed CMP [Comprehensive Metabolic Panel] Stat Lab 01/16/25 10:28 Completed Lipase Stat Lab 01/16/25 10:28 Completed Partial Thromboplastin Time Stat Lab 01/16/25 10:28 Completed Prothrombin Time with INR Stat Lab 01/16/25 10:28 Completed Urinalysis Stat Lab 01/16/25 11:17 Completed Urine Culture Stat Lab 01/16/25 11:17 Received Doxycycline [Vibramycin] Med 01/16/25 16:04 Discontinued 100 mg PO X1 ONE Ketorolac Inj [Toradol Inj] Med 01/16/25 10:18 Discontinued 30 mg IM X1 ONE Ondansetron Odt [Zofran Odt] Med 01/16/25 10:18 Discontinued 4 mg PO X1 ONE cefTRIAXone [Rocephin] 500 mg Med 01/16/25 16:16 Discontinued Lidocaine 1% Pf 5 ml [Xylocaine 1% Pf 5 ml] 1 ml IM X1 Reevaluation(s) Reevaluation #1: At the time of reassessment, the patient remains alert and oriented ?3 with GCS 15. Vitals are normal, pain is controlled, and the patient is tolerating oral intake without nausea or vomiting. The patient is agreeable to discharge and verbalizes understanding of the diagnosis, studies, treatment plan, medications (including side effects/precautions), and strict ER return precautions as discussed in the ED. All concerns were addressed, and the patient is comfortable with the plan. Vital Signs Vital signs: Vital Signs Temperature 97.9 F 01/16/25 10:02 Pulse Rate 60 01/16/25 10:02 Respiratory Rate 16 01/16/25 10:02 Blood Pressure 110/75 01/16/25 10:02 Pulse Oximetry (%) 99 01/16/25 10:02 Oxygen Delivery Method Room Air 01/16/25 10:02 Urogenital - Female Patient data External records reviewed:: [facility] previous records Clinical information provided by:: patient Social determinants that could affect healthcare access:: none Patient has the following chronic illnesses:: As noted How is presenting disease/condition affected by chronic disease/condition?: uneffected by Evaluation data The following diagnostics were reviewed and interpreted by me:: other (specify) Lab and/or radiology exams considered but not ordered:: Additional Labs and radiology considered, but not ordered as they were not clinically indicated at this time. Interpretation Summary: CBC, Coags, CMP, UA unremarkable without severe metabolic or electrolyte abnormality UA notes rare bacteria with squamous cells however no signs of infection CT and ultrasound without acute intra-abdominal or pelvic abnormality Medications / Prescriptions Medications or Prescriptions considered but not ordered:: I considered prescription management (both outpatient prescriptions AND drug treatment in the ER) and decided that this was necessary and was prescribed as charted. Medication administrations:: Medication Administration History Discontinued Medications Ceftriaxone Sodium 500 mg/ (Lidocaine HCl 1 ml) 0 mg IM X1 ONE Stop: 01/16/25 16:17 Last Admin: 01/16/25 17:00 Dose: 500 mg Documented By: Doxycycline Hyclate (Doxycycline 100 Mg Tablet) 100 mg PO X1 ONE Stop: 01/16/25 16:05 Last Admin: 01/16/25 17:00 Dose: 100 mg Documented By: Ketorolac Tromethamine (Ketorolac Inj 30 Mg/Ml Vial) 30 mg IM X1 ONE Stop: 01/16/25 10:19 Last Admin: 01/16/25 10:54 Dose: 30 mg Documented By: Ondansetron HCl (Ondansetron Odt 4 Mg Tabrap) 4 mg PO X1 ONE; Protocol Stop: 01/16/25 10:19 Last Admin: 01/16/25 10:52 Dose: 4 mg Documented By: As noted Consultations Consultation(s) initiated? (list below): No Diagnosis Urogenital Female Differential Diagnosis: urinary tract infection, bacterial vaginosis, trichomoniasis and cyst of Bartholin's gland Most likely diagnosis given after review of the tests above:: Dysuria of unclear etiology Admission Indicated Admission indicated?: not indicated Admission Request Was there a request for admission?: No Disposition Plan Disposition Plan: Discharge Discharge Attestation Discharge Attestation: The patient and all family members were given an opportunity to ask questions and understood the discharge instructions. Discharge instructions specifically effects, indications for sooner follow up or return to the emergency department, and the expected course of current diagnosis. Patient condition: Stable Discharge Plan Plan Patient Disposition: HOME (Self Care) Patient condition on transfer: Stable Prescriptions/Referrals Prescriptions/Med Rec: New doxycycline hyclate 100 mg capsule 100 mg PO BID Qty: 14 0RF No Action lisinopril-hydrochlorothiazide 20-12.5 mg Tablet 1 tab PO QDAY acetaminophen-codeine 300-15 mg tablet 1 tab PO Q8H PRN (Reason: pain) Qty: 14 0RF acetaminophen 500 mg tablet 500 mg PO Q6H PRN (Reason: fever or pain) Qty: 30 0RF hydroxyzine HCl 50 mg tablet 50 mg PO BID PRN (Reason: anxiety) Qty: 30 0RF acetaminophen [Tylenol Extra Strength] 500 mg tablet 1,000 mg PO QID PRN (Reason: pain) Qty: 30 0RF rizatriptan [Maxalt-WIDTH STRIPPER] 10 mg tablet,disintegrating 10 mg PO Q2H PRN (Reason: migraine headache) Qty: 20 0RF Rx Instructions: do not exceed 3 doses per 24 hrs diphenhydramine HCl [Benadryl] 25 mg capsule 25 mg PO Q8H PRN (Reason: allergic symptoms) Qty: 30 0RF clonazepam 0.5 mg tablet 1 mg PO BID PRN (Reason: anxiety) magnesium hydroxide [Milk of Magnesia] 400 mg/5 mL suspension 20 ml PO TID PRN (Reason: constipation) Qty: 355 0RF fluconazole 150 mg tablet 150 mg PO Q3D Qty: 2 0RF Rx Instructions: may repeat second dose 72 hrs after first dose if symptoms persist Referrals: Risa Villegas, HYPERBARIC TECH [Primary Care Provider] - In 1 week Problem List Clinical Impression: Dysuria Patient/Caregiver Discharge Instructions Education Materials: ED Dysuria, Uncertain Cause (Adult) Additional Instructions: Follow up with your primary medical doctor within 24 hours. Return to the Emergency Room immediately for any new, worsening, continuing symptoms or any concerns at all. Return to the Emergency Room within 24 hours if you are unable to follow up with your primary medical doctor within 24 hours. Follow-up with a urogynecologist as well this week please get a referral from your primary doctor. You and your partner need a full STD panel. Print Language: Urdu Stand Alone Forms: Trish Award Info., Patient Portal Info Letter PA/HEEL LINING PASTER Supervising Physician PA/JOSE G Supervising Physician: Dr. Pacheco
--- NOTE | 2025-01-16 10:19 | XR_ITS ---
Examination: CT abdomen and pelvis without contrast. Coronal 3-D reconstructions. Sagittal 2-D reconstructions. Date and time of exam: January 16, 2025, 10:40 a.m., comparison June 05, 2023 INDICATIONS: Pelvic pain beginning 3 weeks ago, history hysterectomy CTDI: vol (mGy): 9.68 DLP: (mGycm): 476 Technique: Axial images of the abdomen have been obtained, 3 mm slice thickness Intravenous contrast material has not been administered. Low dose protocols were performed. One or more of the following dose reduction techniques were used; automated exposure control, adjustment of the mA and/or KV according to patient size, use of iterative reconstruction technique. Findings: No focal liver or splenic lesions Contracted gallbladder No pancreatic mass or peripancreatic edema Normal adrenal glands No CT findings of urinary tract infection No renal or ureteral calculi, no hydronephrosis Aorta normal size Normal appendix No bowel obstruction Scattered colonic diverticulosis, no diverticulitis Absent uterus No pelvic mass Bladder intact Moderate disc narrowing L5-S1 IMPRESSION: No CT findings of urinary tract infection No renal or ureteral calculi, no hydronephrosis Normal appendix No pelvic mass However, given the patient's presentation, consider pelvic sonography follow-up
[2025-01-16 10:43] LABS: Basophils # (Auto) 0.0 Thou/mm3 (0.0-0.2); Basophils % (Auto) 1 % (0-2.5); Eosinophils # (Auto) 0.1 Thou/mm3 (0.0-0.5); Eosinophils % (Auto) 2 % (0-10); Hematocrit 38.0 % (36.0-46.0); Hemoglobin 12.8 g/dL (12.0-16.0); Immature Granulocytes Auto 0.02 Thou/mm3 (0.00-0.00); Lymphocytes # (Auto) 2.1 Thou/mm3 (1.0-4.8); Lymphocytes % (Auto) 34 % (10-50); Mean Corpuscular HGB Conc 33.7 g/dl (31.0-37.0); Mean Corpuscular Hemoglobin 30.2 pg (25.0-35.0); Mean Corpuscular Volume 90 fL (80-100); Monocytes # (Auto) 0.3 Thou/mm3 (0.0-0.8); Monocytes % (Auto) 5 % (0-12); Neutrophils # (Auto) 3.7 Thou/mm3 (1.8-7.7); Neutrophils % (Auto) 58 % (37-80); Nucleated Red Blood Cell # 0.00 Thou/mm3 (0.00-0.00); Nucleated Red Blood Cell % 0 /100 WBC (0); Platelet Count 189 Thou/mm3 (140-440); RDW Standard Deviation 37.8 fL (36.4-46.3); Red Blood Count 4.24 Miln/mm3 (4.00-5.20); White Blood Count 6.3 Thou/mm3 (3.6-11.0)
[2025-01-16] MEDS: ONDANSETRON ODT 4 MG TABRAP PO (10:52)
[2025-01-16] MEDS: KETOROLAC INJ 30 MG/ML VIAL IM (10:54)
[2025-01-16 11:16] LABS: INR 1.0 (0.9-1.3); Partial Thromboplastin Time 27.9 Seconds (22.0-36.0); Prothrombin Time 10.7 Seconds (9.0-12.2)
[2025-01-16 11:17] LABS: Alanine Aminotransferase 23 U/L (10-49); Albumin, Serum 4.3 gm/dL (3.5-5.0); Albumin/Globulin Ratio 2.2 (1.2-2.2); Alkaline Phosphatase 82 U/L (46-116); Anion Gap 7 (7-16); Aspartate Amino Transferase 26 U/L (0-34); BUN/Creatinine Ratio 12 Ratio (12-20); Bilirubin,Total 0.4 mg/dL (0.3-1.2); Blood Urea Nitrogen 7 mg/dL (9-23); Calcium 9.3 mg/dL (8.3-10.6); Calcium (Corrected) 9.3 mg/dL (8.5-10.1); Carbon Dioxide 28.6 mMol/L (20.0-31.0); Chloride 107 mMol/L (98-107); Creatinine (Component) 0.6 mg/dL (0.6-1.3); Estimated Creatinine Clearance 102.7 mL/min (>60); Globulin 2.0 gm/dL (2.3-3.5); Glucose 106 mg/dL (74-106); Lipase 44 U/L (12-53); Osmolality,Calculated 282 (275-295); Potassium 4.3 mMol/L (3.4-5.1); Sodium 143 mMol/L (136-145); Total Protein 6.3 gm/dL (5.7-8.2); eGFR > 60 See Note
--- NOTE | 2025-01-16 11:24 | XR_ITS ---
Examination: Pelvic ultrasound, transabdominal, complete Technique: Transabdominal ultrasound of the pelvis performed using grayscale imaging Date and time of exam: January 16, 2025, 1220 hours INDICATIONS: Pelvic pain beginning 3 weeks ago, hysterectomy FINDINGS: Absent uterus Right ovary 2.9 cm arterial flow Left ovary 3.4 cm arterial flow IMPRESSION: Negative for ovarian abnormality
[2025-01-16 11:28] LABS: Collection Type, Urine Voided
[2025-01-16 11:40] LABS: Bacteria,Urine Rare; Bilirubin,Urine Negative (Negative); Blood,Urine Negative (Negative); Clarity,Urine Clear (Clear/Hazy); Color,Urine Colorless (Lt Yel-Yel); Glucose, Urine Negative (Negative); Ketones,Urine Negative (Negative); Leukocyte Esterase,Urine Negative (Negative); Nitrite,Urine Negative (Negative); PH,Urine 7.0 (5.0-7.0); Protein,Urine Negative (Neg - Trace); RBC,Urine 1 /hpf (0-3); Specific Gravity,Urine 1.003 (1.001-1.035); Squamous Epithelial Cell,Urine 4 /hpf (0-5); Urobilinogen,Urine Negative mg/dL (0.0-1.0); WBC,Urine < 1 /hpf (0-5)
--- NOTE | 2025-01-16 16:09 | PD.EDFMALE ---
ED Female Urogenital RME/HPI General Chief complaint: Urogenital-Female Stated complaint: PELVIC PAIN X 3 WEEKS, RECENT UTI, DYSURIA Time Seen by Provider: 01/16/25 10:14 Arrival date/time: 01/16/25 08:43 RME / HPI RME / HPI Narrative: 49-year-old female with past medical history of hysterectomy however she still remains with her ovaries which was performed 3 years ago, hypertension, anxiety who presents to the ER complaining of gradually worsening lower abdominal pain x 3 weeks. At onset of symptoms patient was given Macrobid as well as metronidazole without improvement. Denies any abnormal vaginal bleeding or discharge, fever, nausea, vomiting, diarrhea. Related Data Home Medications ?Medication ?Instructions ?Recorded ?Confirmed lisinopril 20 1 tab PO QDAY 06/05/22 01/03/23 mg-hydrochlorothiazide 12.5 mg tablet clonazepam 0.5 mg tablet 1 mg PO BID PRN anxiety 12/10/23 12/10/23 Previous Rx's ?Medication ?Instructions ?Recorded acetaminophen 300 mg-codeine 15 mg 1 tab PO Q8H PRN pain #14 tabs 06/07/22 tablet acetaminophen 500 mg tablet 500 mg PO Q6H PRN fever or pain 06/07/22 #30 tabs acetaminophen 500 mg tablet 1,000 mg (2 x 500 mg) PO QID PRN 11/16/22 (Tylenol Extra Strength) pain #30 tabs hydroxyzine HCl 50 mg tablet 50 mg PO BID PRN anxiety #30 tabs 11/16/22 rizatriptan 10 mg disintegrating 10 mg PO Q2H PRN migraine headache 01/09/23 tablet (Maxalt-LEAD ATG DEVELOPER) #20 tabs diphenhydramine HCl 25 mg capsule 25 mg PO Q8H PRN allergic symptoms 03/24/23 (Benadryl) #30 caps magnesium hydroxide 400 mg/5 mL 20 ml PO TID PRN constipation #355 12/10/23 oral suspension (Milk of Magnesia) mL fluconazole 150 mg tablet 150 mg PO Q3D 2 doses #2 tabs 08/11/24 doxycycline hyclate 100 mg capsule 100 mg PO BID #14 caps 01/16/25 Allergies Allergy/AdvReac Type Severity Reaction Status Date / Time No Known Allergies Allergy Verified 01/16/25 08:47 ED Exam Narrative Physical exam: Constitutional: Patient alert and oriented. Well appearing. No acute distress. Not toxic appearing. Head: Normocephalic, atraumatic. Eyes: Periorbital regions bilaterally normal to inspection. Conjunctiva clear bilaterally. Sclera anicteric bilaterally. Pupils equal, round, reactive to light bilaterally. Extraocular movements intact bilaterally. Mouth/Throat: Mucous membranes moist. No stridor or muffled voice. No trismus. Handling secretions without difficulty. Airway widely patent. Neck: Supple. Trachea midline. No JVD. No nuchal rigidity. Normal range of motion. Respiratory: Normal effort. No accessory muscle use or respiratory distress. Lungs clear to auscultation bilaterally without rhonchi, wheezes, or crackles. Cardiovascular: RRR. Normal S1/S2. No murmurs or rubs. Radial pulses intact bilaterally. Abdomen: Soft. Non-distended. Non-tender throughout. No pulsatile mass. No guarding or rebound. Negative Norman?s sign. Negative McBurney?s point tenderness. Negative Rovsing?s. : Eeo Officer Cary was present and exam performed there is some scant physiologic vaginal discharge. No cervical motion tenderness or adnexal masses or tenderness bilaterally. Back: No midline tenderness or step-offs. No CVA tenderness to palpation bilaterally. Upper Extremities: No gross deformities. Lower Extremities: No gross deformities. No edema or calf tenderness. Neuro: Speech normal. No gross motor or sensory deficits to upper or lower extremities bilaterally. GCS 15. CN II?XII grossly intact. Skin: Warm, dry, normal color. Psych: Normal affect. Cooperative. Normal insight. Course Quality Measures none Orders Category Date Time Status NPO NOW Care 01/16/25 10:19 Active Diet NPO (NOW) Diet 01/16/25 10:[address] abdomen pelvis wo con Stat Exams 01/16/25 10:19 Completed US pelvic complete Stat Exams 01/16/25 11:24 Completed CBC Stat Lab 01/16/25 10:28 Completed CMP [Comprehensive Metabolic Panel] Stat Lab 01/16/25 10:28 Completed Lipase Stat Lab 01/16/25 10:28 Completed Partial Thromboplastin Time Stat Lab 01/16/25 10:28 Completed Prothrombin Time with INR Stat Lab 01/16/25 10:28 Completed Urinalysis Stat Lab 01/16/25 11:17 Completed Urine Culture Stat Lab 01/16/25 11:17 Received Doxycycline [Vibramycin] Med 01/16/25 16:04 Once 100 mg PO X1 ONE Ketorolac Inj [Toradol Inj] Med 01/16/25 10:18 Discontinued 30 mg IM X1 ONE Ondansetron Odt [Zofran Odt] Med 01/16/25 10:18 Discontinued 4 mg PO X1 ONE cefTRIAXone [Rocephin] Med 01/16/25 16:04 Once 500 mg IM X1 ONE Vital Signs Vital signs: Vital Signs Temperature 97.9 F 01/16/25 10:02 Pulse Rate 60 01/16/25 10:02 Respiratory Rate 16 01/16/25 10:02 Blood Pressure 110/75 01/16/25 10:02 Pulse Oximetry (%) 99 01/16/25 10:02 Oxygen Delivery Method Room Air 01/16/25 10:02 Urogenital - Female MDM Narrative MDM Narrative:: Concern for dysuria of unclear etiology Patient was previously treated for vaginitis and vaginosis without symptom relief UA is without signs of infection CBC, CMP, lipase without severe metabolic or electrolyte abnormality Pelvic and CT abdomen pelvis without acute intra abdominal or pelvic abnormality Risk and benefits of empiric treatment for gonorrhea chlamydia discussed with patient who is requesting treatment, I advised her to have her partner and her get a full STD panel prior to resumption of intercourse Cannot exclude urethritis versus interstitial cystitis Plan for patient to follow-up with PMD and urogynecologist in 1 to 2 days, strict ER return precautions advised Patient data External records reviewed:: [facility] previous records Clinical information provided by:: patient Social determinants that could affect healthcare access:: none Patient has the following chronic illnesses:: As noted How is presenting disease/condition affected by chronic disease/condition?: uneffected by Evaluation data The following diagnostics were reviewed and interpreted by me:: lab results and radiology exam(s) Lab and/or radiology exams considered but not ordered:: Additional Labs and radiology considered, but not ordered as they were not clinically indicated at this time. Interpretation Summary: As above Medications / Prescriptions Medications or Prescriptions considered but not ordered:: As noted Medication administrations:: Medication Administration History Ceftriaxone Sodium (Ceftriaxone Sodium 500 Mg Vial) 500 mg IM X1 ONE Stop: 01/16/25 16:05 Doxycycline Hyclate (Doxycycline 100 Mg Tablet) 100 mg PO X1 ONE Stop: 01/16/25 16:05 Discontinued Medications Ketorolac Tromethamine (Ketorolac Inj 30 Mg/Ml Vial) 30 mg IM X1 ONE Stop: 01/16/25 10:19 Last Admin: 01/16/25 10:54 Dose: 30 mg Documented By: Ondansetron HCl (Ondansetron Odt 4 Mg Tabrap) 4 mg PO X1 ONE; Protocol Stop: 01/16/25 10:19 Last Admin: 01/16/25 10:52 Dose: 4 mg Documented By: As noted Consultations Consultation(s) initiated? (list below): No Diagnosis Urogenital Female Differential Diagnosis: urinary tract infection, cervicitis, vaginitis and cystitis Most likely diagnosis given after review of the tests above:: Dysuria of unclear etiology Admission Indicated Admission indicated?: not indicated Admission Request Was there a request for admission?: No Disposition Plan Disposition Plan: Discharge Discharge Attestation Discharge Attestation: The patient and all family members were given an opportunity to ask questions and understood the discharge instructions. Discharge instructions specifically effects, indications for sooner follow up or return to the emergency department, and the expected course of current diagnosis. Patient condition: Stable Discharge Plan Plan Patient Disposition: HOME (Self Care) Patient condition on transfer: Stable Prescriptions/Referrals Prescriptions/Med Rec: New doxycycline hyclate 100 mg capsule 100 mg PO BID Qty: 14 0RF No Action lisinopril-hydrochlorothiazide 20-12.5 mg Tablet 1 tab PO QDAY acetaminophen-codeine 300-15 mg tablet 1 tab PO Q8H PRN (Reason: pain) Qty: 14 0RF acetaminophen 500 mg tablet 500 mg PO Q6H PRN (Reason: fever or pain) Qty: 30 0RF hydroxyzine HCl 50 mg tablet 50 mg PO BID PRN (Reason: anxiety) Qty: 30 0RF acetaminophen [Tylenol Extra Strength] 500 mg tablet 1,000 mg PO QID PRN (Reason: pain) Qty: 30 0RF rizatriptan [Maxalt-LEAD ATG DEVELOPER] 10 mg tablet,disintegrating 10 mg PO Q2H PRN (Reason: migraine headache) Qty: 20 0RF Rx Instructions: do not exceed 3 doses per 24 hrs diphenhydramine HCl [Benadryl] 25 mg capsule 25 mg PO Q8H PRN (Reason: allergic symptoms) Qty: 30 0RF clonazepam 0.5 mg tablet 1 mg PO BID PRN (Reason: anxiety) magnesium hydroxide [Milk of Magnesia] 400 mg/5 mL suspension 20 ml PO TID PRN (Reason: constipation) Qty: 355 0RF fluconazole 150 mg tablet 150 mg PO Q3D Qty: 2 0RF Rx Instructions: may repeat second dose 72 hrs after first dose if symptoms persist Referrals: Risa Villegas GUEST SERVICE HOST [Primary Care Provider] - In 1 week Problem List Clinical Impression: Dysuria Patient/Caregiver Discharge Instructions Education Materials: ED Dysuria, Uncertain Cause (Adult) Additional Instructions: Follow up with your primary medical doctor within 24 hours. Return to the Emergency Room immediately for any new, worsening, continuing symptoms or any concerns at all. Return to the Emergency Room within 24 hours if you are unable to follow up with your primary medical doctor within 24 hours. Follow-up with a urogynecologist as well this week please get a referral from your primary doctor. You and your partner need a full STD panel. Print Language: New Zealander Stand Alone Forms: Trish Award Info., Patient Portal Info Letter PA/RADIATION ENGINEER Supervising Physician PA/RADIATION ENGINEER Supervising Physician: Dr. Pacheco
[2025-01-16] MEDS: DOXYCYCLINE 100 MG TABLET PO (17:00)
== END 2025-01-16 17:30 | disposition home or self-care (01) ==
PROVIDERS: Physician Assistant; Emergency Provider Family Medicine; PCP Nurse Practitioner Family
DX: R30.0 Dysuria (principal); R10.20 Pelvic and perineal pain unspecified side; Z87.440 Personal history of urinary (tract) infections; I10 Essential (primary) hypertension
CPT/HCPCS: 36415; 74176; 76856; 80053; 81001; 83690; 85025; 85610; 85730; 87086; 96372; 99283; J0696; J1885; J3490; Q0162; A9270

== ENCOUNTER 2025-02-27 12:51 | Emergency (ER) | payer MEDICAID, SELFPAY ==
[2025-02-27 12:52] VITALS: BMI 29.0
[2025-02-27 13:43] VITALS: BP 121/73; PULSE 64; RESP 18; TEMP 36.8; O2SAT 98
[2025-02-27] MEDS: ACETAMINOPHEN 500 MG TABLET 1000 MG PO (14:06)
[2025-02-27] MEDS: IBUPROFEN TAB 400 MG TABLET 800 MG PO (14:07)
[2025-02-27] MEDS: PROMETHAZINE/DM SYRUP 5 ML DOSE PO (14:09)
--- NOTE | 2025-02-27 14:49 | XR_ITS ---
EXAMINATION: PA chest single view TECHNIQUE: Upright PA chest single view Date and time: February 27, 2025, 1456 hours, comparison July 20, 2024 INDICATIONS: Coughing chest pain beginning 4 days ago. FINDINGS: Mild enlargement cardiac contour. Minimal ectasia thoracic aorta. No pneumonia or pulmonary edema. Mild osteopenia. IMPRESSION: No active disease
--- NOTE | 2025-02-27 14:49 | PD.EDURI ---
Upper Respiratory Inf. RME/HPI General Chief Complaint: Flu Like Symptoms Stated Complaint: COUGH X5 DAYS, CHEST PAIN SINCE THIS AM Time Seen by Provider: 02/27/25 12:59 Arrival date/time: 02/27/25 12:51 This is a 49-year-old female that comes into the emergency room with complaints of cough x 5 days patient also complains of runny nose and congestion. Patient denies any other symptoms. Patient denies any past medical history. Related Data Home Medications ?Medication ?Instructions ?Recorded ?Confirmed lisinopril 20 1 tab PO QDAY 06/05/22 01/03/23 mg-hydrochlorothiazide 12.5 mg tablet clonazepam 0.5 mg tablet 1 mg PO BID PRN anxiety 12/10/23 12/10/23 Previous Rx's ?Medication ?Instructions ?Recorded acetaminophen 300 mg-codeine 15 mg 1 tab PO Q8H PRN pain #14 tabs 06/07/22 tablet acetaminophen 500 mg tablet 500 mg PO Q6H PRN fever or pain 06/07/22 #30 tabs acetaminophen 500 mg tablet 1,000 mg (2 x 500 mg) PO QID PRN 11/16/22 (Tylenol Extra Strength) pain #30 tabs hydroxyzine HCl 50 mg tablet 50 mg PO BID PRN anxiety #30 tabs 11/16/22 rizatriptan 10 mg disintegrating 10 mg PO Q2H PRN migraine headache 01/09/23 tablet (Maxalt-HOSPICE COMMUNITY LIAISON) #20 tabs diphenhydramine HCl 25 mg capsule 25 mg PO Q8H PRN allergic symptoms 03/24/23 (Benadryl) #30 caps magnesium hydroxide 400 mg/5 mL 20 ml PO TID PRN constipation #355 12/10/23 oral suspension (Milk of Magnesia) mL fluconazole 150 mg tablet 150 mg PO Q3D 2 doses #2 tabs 08/11/24 doxycycline hyclate 100 mg capsule 100 mg PO BID #14 caps 01/16/25 ibuprofen 800 mg tablet 800 mg PO Q6H PRN pain #20 tabs 02/27/25 promethazine-DM 6.25 mg-15 mg/5 mL 5 ml PO Q6H PRN cough #120 mL 02/27/25 oral syrup acetaminophen 500 mg tablet 500 mg PO Q4H PRN fever or pain 03/06/25 (Tylenol Extra Strength) #30 tabs dicyclomine 10 mg capsule 10 mg PO QID PRN abdominal pain 03/06/25 #20 caps ondansetron 4 mg disintegrating 4 mg PO Q6H PRN nausea and 03/06/25 tablet vomiting #20 tabs Allergies Allergy/AdvReac Type Severity Reaction Status Date / Time No Known Allergies Allergy Verified 03/06/25 08:39 Review of Systems Review of Systems Systems Reviewed: All systems reviewed, normal except as documented Past Medical History Past Medical History NEUROLOGIC: Negative Neurological Disorders, Cerebrovascular Accident, Transient Ischemic Attacks (TIA), Dementia, Alzheimer's Disease, Parkinson's Disease, Brain Tumor, Meningitis, Seizures, Epilepsy, Multiple Sclerosis, Cerebral Palsy, Amyotrophic Lateral Sclerosis (ALS/Rubia Gehrig's), Guillain-Trenton Syndrome, Spina Bifida, Paralysis, Peripheral Neuropathy, Smart's Palsy, Subdural Hematoma, Migraine, Head Trauma, Spinal Cord Injury or Traumatic Brain Injury CARDIAC: Positive Hypercholesterolemia, Edema and Hypertension; Negative Cardiac Disorders, Myocardial Infarction, Cardiac Arrhythmia, Atrial Fibrillation, Angina, Heart Murmur, Coronary Artery Disease, Atherosclerotic Heart Disease, Peripheral Vascular Disease, Aneurysm, Congestive Heart Failure, Congenital Heart Disease, Valvular Heart Disease, Rheumatic Fever, Cardiomyopathy, Pericarditis, Cellulitis, Deep Vein Thrombosis, Hypotension or Varicose Veins RESPIRATORY: Negative Chronic Obstructive Pulmonary Disease (COPD), Asthma, Bronchitis, Emphysema, Pneumonia, Pulmonary Fibrosis, Cystic Fibrosis, Tuberculosis, Pulmonary Embolism, Pulmonary Edema or Sleep Apnea GASTROINTESTINAL: Positive Colitis and Gastroesophageal Reflux Disease; Negative Gastrointestinal Disorders, Hepatitis, Cirrhosis, Pancreatitis, Celiac Disease, Gall Bladder Disease, Gastrointestinal Bleed, Esophageal Varices, Epps's Esophagus, Ulcerative Colitis, Diverticulitis, Diverticulosis, Ulcer, Colorectal Cancer, Irritable Bowel, Crohn's Disease, Obstructive Bowel, Hiatal Hernia, Hemorrhoids or Obesity GENITOURINARY: Negative Genitourinary Disorders, Renal Disease, Kidney Stones, Polycystic Kidney Disease, Neurogenic Bladder, Inguinal Hernia or Dialysis REPRODUCTIVE: Positive Previous Pregnancies; Negative Breast Cancer, Endometriosis, Genital Herpes, Gonorrhea, Pelvic Inflammatory Disease, Syphilis or Uterine Prolapse MUSCULOSKELETAL: Negative Musculoskeletal Disorders, Muscular Dystrophy, Myasthenia Gravis, Marfan's Syndrome, Bone Cancer, Arthritis, Rheumatoid Arthritis, Osteoporosis, Degenerative Disk Disease, Gout, Scoliosis, Carpal Tunnel Syndrome, Fibromyalgia, Fractures, Degenerative Joint Disease, Osteomyelitis or Poliovirus ENT: Negative Cataracts, Glaucoma, Blind, Retinal Detachment, Macular Degeneration, Ear Infection, Deafness, Head Trauma or Eye Prosthesis ENDOCRINE: Negative Endocrine Disorders, Diabetes Mellitus Type 1, Diabetes Mellitus Type 2, Hypoglycemia, Soperton's Syndrome, Barstow's Disease, Hyperthyroidism, Hypothyroidism, Parathyroid Disease, Pituitary Disease, Systemic Lupus Erythematosus, Syndrome of Inappropriate Antidiuretic Hormone (SIADH), Adrenal Disease or Graves' Disease HEMATOLOGIC: Negative Blood Disorders, Anemia, Leukemia, Hemophilia, Thalassemia, Sickle Cell Disease or Clotting Problems PSYCHO/SOCIAL: Positive Anxiety; Negative Psychiatric Problems, Schizophrenia, Recreational Drug Use, Bipolar Disorder, Depression, Behavior Problems, Self-Mutilation, Attention Deficit Disorder, Attention Deficit Hyperactivity Disorder, Depression, Post Traumatic Stress Disorder or Eating Disorder OTHER HISTORY: Positive Measles; Negative Hospitalization, Autoimmune Disease, Down Syndrome, Autism, Developmental Delay, Shingles, Falls, Blood Transfusions, Blood Transfusion Reaction, Anesthesia Reactions, Organ Transplant, Chemotherapy, Radiation Therapy, Hyperbaric Therapy, MRSA, VRSA, Vancomycin-Resistant Enterococci, Human Immunodeficiency Virus (HIV), Chicken Pox, Mumps, Rubella (Tanzanian Measles), Pertussis, Clostridium Difficile, Cancer, Breast Cancer, Cervical Cancer, Colorectal Cancer, Lung Cancer or Ovarian Cancer Family History FAMILY HISTORY: Positive Family Psychiatric Problems; Negative Family Respiratory Disorders, Family Cardiac Disorders, Family Gastrointestinal Problems, Family Cancer, Family Surgery or Family Anesthesia Reaction Surgical History SURGICAL: Positive Hysterectomy and Section; Negative Cardiac Surgery, Open Heart Surgery, Coronary Artery Bypass Graft, Valve Replacement, Vascular Surgery, Coronary Stent, Cardiac Catheterization, Pacemaker, Angiogram, Auto Implanted Cardiovert Defib, Carotid Endarterectomy, Endocrine Surgery, Thyroidectomy, Ear Surgery, Tympanostomy Tube, Eye Surgery, Nose Surgery, Oral Surgery, Tonsillectomy, Adenoidectomy, Cochlear Implant, Corneal Transplant, Throat Surgery, Abdominal Surgery, Tracheostomy, Gastric Bypass Surgery, Gastrostomy, Bowel Surgery, Nephrectomy, Joint Replacement, Amputation, Open Reduction Internal Fixation, Arthroscopy, Neurologic Surgery, Brain Shunt, Mastectomy, Lumpectomy, Tubal Ligation or Organ Transplant Social History SMOKING STATUS: Never smoker ED Exam Narrative Physical exam: VITAL SIGNS: Reviewed. GENERAL APPEARANCE: Alert and interactive, follows commands, no acute distress, HEAD AND FACE: Non-traumatic. ENT: PERRL, conjuctiva pink and clear, eyelid no trauma, Mucous membrane moist. NECK: Supple, nontender, no nuchal rigidity. CHEST: No tenderness, no crepitus, no paradoxical movement, no retractions. LUNGS: Clear, well ventilated, symmetric, no rales, no wheezing, no rhonchi, no stridor, good breath sounds bilaterally. HEART: Regular rate, regular rhythm, no murmur, no gallops. ABDOMEN: Soft, nondistended, no pain to palpation NEUROLOGICAL: Gross motor function intact sensory function intact, Appropriate for age. MUSCULOSKELETAL: low back nontender, full range of motion. EXTREMITIES: No redness no swelling no skin breakdown on bilateral foot and leg. Distal neurovascular status intact bilateral foot SKIN: Color pink, drys. Course Quality Measures none Orders Category Date Time Status Bedside COVID-19 Antigen Test NOW Care 02/27/25 13:47 Completed Bedside Influenza A&B Antigen Test NOW Care 02/27/25 13:47 Completed XR chest 1V Stat Exams 02/27/25 14:49 Completed Acetaminophen Tab [Tylenol ES Tab] Med 02/27/25 13:46 Discontinued 1,000 mg PO X1 ONE Ibuprofen Tab [Motrin Tab] Med 02/27/25 13:46 Discontinued 800 mg PO X1 ONE Promethazine/Dextromethorph [Phenergan Dm Syrup] Med 02/27/25 13:46 Discontinued 5 ml PO X1 ONE Vital Signs Vital signs: Vital Signs Temperature 98.2 F 02/27/25 13:43 Pulse Rate 64 02/27/25 13:43 Respiratory Rate 18 02/27/25 13:43 Blood Pressure 121/73 02/27/25 13:43 Pulse Oximetry (%) 98 02/27/25 13:43 Oxygen Delivery Method Room Air 02/27/25 13:43 Upper Respiratory Infection MDM Narrative MDM Narrative:: chest x ray: FINDINGS: Mild enlargement cardiac contour. Minimal ectasia thoracic aorta. No pneumonia or pulmonary edema. Mild osteopenia. IMPRESSION: No active disease Patient feels better after Tylenol ibuprofen and cough medicine. Chest x-ray unremarkable for pneumonia. Patient told to drink plenty of fluids and get rest. COVID and influenza negative. Patient told to follow-up with primary provider in 1 to 2 days. Come back to the emergency room symptoms change or worsen. Dragon dictation: Although this document has been carefully reviewed, there may still be some phonetic and other typographical errors. These errors are purely grammatical due to imperfections in the software program and should not be construed in any way to compromise the substance of the patient's medical care during this visit. Patient data External records reviewed:: [facility] previous records Clinical information provided by:: patient Social determinants that could affect healthcare access:: none Patient has the following chronic illnesses:: None How is presenting disease/condition affected by chronic disease/condition?: no chronic disease Evaluation data The following diagnostics were reviewed and interpreted by me:: lab results and radiology exam(s) Lab and/or radiology exams considered but not ordered:: None Interpretation Summary: See note Medications / Prescriptions Medications or Prescriptions considered but not ordered:: None Medication administrations:: Medication Administration History Discontinued Medications Acetaminophen (Acetaminophen 500 Mg Tablet) 1,000 mg PO X1 ONE Stop: 02/27/25 13:47 Last Admin: 02/27/25 14:06 Dose: 1,000 mg Documented By: Ibuprofen (Ibuprofen Tab 400 Mg Tablet) 800 mg PO X1 ONE Stop: 02/27/25 13:47 Last Admin: 02/27/25 14:07 Dose: 800 mg Documented By: Promethazine HCl/Dextromethorphan (Promethazine/Dm Syrup 5 Ml Dose) 5 ml PO X1 ONE; Protocol Stop: 02/27/25 13:47 Last Admin: 02/27/25 14:09 Dose: 5 ml Documented By: See MAR Consultations Consultation(s) initiated? (list below): No Diagnosis Upper Respiratory Differential Diagnosis: upper respiratory infection, otitis media, viral infection, bronchitis, influenza and other (Pneumonia) Most likely diagnosis given after review of the tests above:: See note Admission Indicated Admission indicated?: not indicated Admission Request Was there a request for admission?: No Disposition Plan Disposition Plan: Discharge Discharge Attestation Discharge Attestation: The patient and all family members were given an opportunity to ask questions and understood the discharge instructions. Discharge instructions specifically effects, indications for sooner follow up or return to the emergency department, and the expected course of current diagnosis. Patient condition: Stable Discharge Plan Plan Patient Disposition: HOME (Self Care) Patient condition on transfer: Stable Prescriptions/Referrals Prescriptions/Med Rec: New promethazine-DM 6.25-15 mg/5 mL syrup 5 ml PO Q6H PRN (Reason: cough) Qty: 120 0RF ibuprofen 800 mg tablet 800 mg PO Q6H PRN (Reason: pain) Qty: 20 0RF No Action lisinopril-hydrochlorothiazide 20-12.5 mg Tablet 1 tab PO QDAY acetaminophen-codeine 300-15 mg tablet 1 tab PO Q8H PRN (Reason: pain) Qty: 14 0RF acetaminophen 500 mg tablet 500 mg PO Q6H PRN (Reason: fever or pain) Qty: 30 0RF doxycycline hyclate 100 mg capsule 100 mg PO BID Qty: 14 0RF dicyclomine 10 mg capsule 10 mg PO QID PRN (Reason: abdominal pain) Qty: 20 0RF ondansetron 4 mg tablet,disintegrating 4 mg PO Q6H PRN (Reason: nausea and vomiting) Qty: 20 0RF acetaminophen [Tylenol Extra Strength] 500 mg tablet 500 mg PO Q4H PRN (Reason: fever or pain) Qty: 30 0RF hydroxyzine HCl 50 mg tablet 50 mg PO BID PRN (Reason: anxiety) Qty: 30 0RF acetaminophen [Tylenol Extra Strength] 500 mg tablet 1,000 mg PO QID PRN (Reason: pain) Qty: 30 0RF rizatriptan [Maxalt-HOSPICE COMMUNITY LIAISON] 10 mg tablet,disintegrating 10 mg PO Q2H PRN (Reason: migraine headache) Qty: 20 0RF Rx Instructions: do not exceed 3 doses per 24 hrs diphenhydramine HCl [Benadryl] 25 mg capsule 25 mg PO Q8H PRN (Reason: allergic symptoms) Qty: 30 0RF clonazepam 0.5 mg tablet 1 mg PO BID PRN (Reason: anxiety) magnesium hydroxide [Milk of Magnesia] 400 mg/5 mL suspension 20 ml PO TID PRN (Reason: constipation) Qty: 355 0RF fluconazole 150 mg tablet 150 mg PO Q3D Qty: 2 0RF Rx Instructions: may repeat second dose 72 hrs after first dose if symptoms persist Referrals: Leonor Melvin, LABORATORY INSPECTOR-C [Primary Care Provider] - In 1 week Problem List Clinical Impression: URI (upper respiratory infection), Cough Patient/Caregiver Discharge Instructions Discharge Activity: activity as tolerated Education Materials: ED URI, Viral, No Abx (Adult) Additional Instructions: Puneet un laina con abraham medico de cabecera en las proximas 24-48 horas. Regrese a la britta de emergencias si hay evidencia de que los signos o sintomas empeoran. Print Language: Canadian Stand Alone Forms: Trish Award Info., Patient Portal Info Letter PA/LABORATORY INSPECTOR Supervising Physician PA/LABORATORY INSPECTOR Supervising Physician: william
== END 2025-02-27 17:55 | disposition home or self-care (01) ==
PROVIDERS: Emergency Provider Emergency Medicine
DX: J06.9 Acute upper respiratory infection, unspecified (principal)
CPT/HCPCS: 71045; 87502; 87635; 99283; A9270

== ENCOUNTER 2025-02-28 17:01 | Emergency (ER) | payer MEDICAID, SELFPAY ==
--- NOTE | 2025-02-28 17:02 | EKG_ITS ---
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
[2025-02-28 17:05] VITALS: BP 153/92; PULSE 76; RESP 18; TEMP 36.4; O2SAT 100
--- NOTE | 2025-02-28 17:13 | PD.EDCHEST ---
ED Chest Pain RME/HPI General Chief Complaint: Chest Pain Stated Complaint: CHEST PAIN Time Seen by Provider: 02/28/25 17:12 Arrival date/time: 02/28/25 17:01 49-year-old female patient with significant history of hypertension, anxiety, came in for evaluation regarding really appreciate a slightly leg symptoms. Has been ongoing for several hours anxiety-like symptoms associated with headache, chest pain, body aches, cramping, weakness, severity moderate. Patient took her clonazepam this morning with no relief. Denies any other complaints Related Data Home Medications ?Medication ?Instructions ?Recorded ?Confirmed lisinopril 20 1 tab PO QDAY 06/05/22 01/03/23 mg-hydrochlorothiazide 12.5 mg tablet clonazepam 0.5 mg tablet 1 mg PO BID PRN anxiety 12/10/23 12/10/23 Previous Rx's ?Medication ?Instructions ?Recorded acetaminophen 300 mg-codeine 15 mg 1 tab PO Q8H PRN pain #14 tabs 06/07/22 tablet acetaminophen 500 mg tablet 500 mg PO Q6H PRN fever or pain 06/07/22 #30 tabs acetaminophen 500 mg tablet 1,000 mg (2 x 500 mg) PO QID PRN 11/16/22 (Tylenol Extra Strength) pain #30 tabs hydroxyzine HCl 50 mg tablet 50 mg PO BID PRN anxiety #30 tabs 11/16/22 rizatriptan 10 mg disintegrating 10 mg PO Q2H PRN migraine headache 01/09/23 tablet (Maxalt[employer]) #20 tabs diphenhydramine HCl 25 mg capsule 25 mg PO Q8H PRN allergic symptoms 03/24/23 (Benadryl) #30 caps magnesium hydroxide 400 mg/5 mL 20 ml PO TID PRN constipation #355 12/10/23 oral suspension (Milk of Magnesia) mL fluconazole 150 mg tablet 150 mg PO Q3D 2 doses #2 tabs 08/11/24 doxycycline hyclate 100 mg capsule 100 mg PO BID #14 caps 01/16/25 ibuprofen 800 mg tablet 800 mg PO Q6H PRN pain #20 tabs 02/27/25 promethazine-DM 6.25 mg-15 mg/5 mL 5 ml PO Q6H PRN cough #120 mL 02/27/25 oral syrup Allergies Allergy/AdvReac Type Severity Reaction Status Date / Time No Known Allergies Allergy Verified 02/27/25 12:54 Review of Systems Review of Systems Narrative Review of Systems: Review of system reviewed and within normal limits except mentioned in HPI ED Exam Narrative Physical exam: VITAL SIGNS: Reviewed. GENERAL APPEARANCE: Alert and interactive, follows commands, no acute distress, HEAD AND FACE: Non-traumatic. ENT: PERRL, pink conjunctivitis, eyelid no trauma, Mucous membrane moist. NECK: Supple, nontender, no nuchal rigidity. CHEST: No tenderness, no crepitus, no paradoxical movement, no retractions. LUNGS: Clear, well ventilated, symmetric, no rales, no wheezing, no ronchi, no stridor, good breath sounds bilaterally. HEART: Regular rate, regular rhythm, no murmur, no gallops. ABDOMEN: Soft, positive bowel sounds, nondistended, no guarding, nontender, no rebound, no masses, RECTAL: Deferred. GENITAL: Deferred. NEUROLOGICAL: Gross motor function intact sensory function intact, Appropriate for age. MUSCULOSKELETAL: low back nontender, full range of motion. EXTREMITIES: Nontender, full range of motion. SKIN: Color pink, dry, no rash, no lacerations, no abrasions, no contusions. LYMPHATICS: Deferred. Course Quality Measures none Orders Category Date Time Status EKG (ED ONLY) *Do not use* NOW Care 02/28/25 17:03 Completed EKG (ED Only) Stat Exams 02/28/25 17:02 Draft CBC [CBC] Stat Lab 02/28/25 17:31 Completed CMP [Comprehensive Metabolic Panel] Stat Lab 02/28/25 17:31 Completed Magnesium Stat Lab 02/28/25 17:31 Completed Troponin I Stat Lab 02/28/25 17:31 Completed UA, C/S IF [Urinalysis, C/S if Indicated] Stat Lab 02/28/25 18:42 Completed Acetaminophen Tab [Tylenol ES Tab] Med 02/28/25 17:12 Discontinued 1,000 mg PO X1 ONE Diazepam [Valium] Med 02/28/25 17:12 Discontinued 5 mg PO X1 ONE Vital Signs Vital signs: Vital Signs Temperature 97.5 F 02/28/25 17:05 Pulse Rate 76 02/28/25 17:05 Respiratory Rate 18 02/28/25 17:05 Blood Pressure 153/92 H 02/28/25 17:05 Pulse Oximetry (%) 100 02/28/25 17:05 Oxygen Delivery Method Room Air 02/28/25 17:05 Chest Pain MDM Narrative MDM Narrative:: 49-year-old female patient with significant history of hypertension, anxiety, came in for evaluation regarding really appreciate a slightly leg symptoms. Has been ongoing for several hours anxiety-like symptoms associated with headache, chest pain, body aches, cramping, weakness, severity moderate. Patient took her clonazepam this morning with no relief. Denies any other complaints Patient's laboratory workup including troponin all came back normal, patient EKG showed normal sinus rhythm, no ST segment elevation depression noted. Patient was given diazepam and Tylenol in the emergency room with complete resolution of symptoms patient is ambulatory. Patient was advised to take her on clonazepam as needed for anxiety. Patient stable for discharge home. Patient data External records reviewed:: None Clinical information provided by:: patient Social determinants that could affect healthcare access:: none Patient has the following chronic illnesses:: Anxiety, How is presenting disease/condition affected by chronic disease/condition?: exacerbated by Evaluation data The following diagnostics were reviewed and interpreted by me:: lab results and EKG tracing(s) Lab and/or radiology exams considered but not ordered:: None Interpretation Summary: See above Medications / Prescriptions Medications or Prescriptions considered but not ordered:: None Medication administrations:: Medication Administration History Discontinued Medications Acetaminophen (Acetaminophen 500 Mg Tablet) 1,000 mg PO X1 ONE Stop: 02/28/25 17:13 Last Admin: 02/28/25 17:21 Dose: 1,000 mg Documented By: ELISHA Diazepam (Diazepam 5 Mg Tablet) 5 mg PO X1 ONE Stop: 02/28/25 17:13 Last Admin: 02/28/25 17:21 Dose: 5 mg Documented By: KM See above Consultations Consultation(s) initiated? (list below): No Diagnosis Chest Pain Differential Diagnosis: chest pain and other (anxiety) Most likely diagnosis given after review of the tests above:: anxiety Admission Indicated Admission indicated?: not indicated Admission Request Was there a request for admission?: No Disposition Plan Disposition Plan: Discharge Discharge Attestation Discharge Attestation: The patient and all family members were given an opportunity to ask questions and understood the discharge instructions. Discharge instructions specifically effects, indications for sooner follow up or return to the emergency department, and the expected course of current diagnosis. Patient condition: Stable Discharge Plan Plan Patient Disposition: HOME (Self Care) Discharge Disposition comment: Stable Prescriptions/Referrals Prescriptions/Med Rec: No Action lisinopril-hydrochlorothiazide 20-12.5 mg Tablet 1 tab PO QDAY acetaminophen-codeine 300-15 mg tablet 1 tab PO Q8H PRN (Reason: pain) Qty: 14 0RF acetaminophen 500 mg tablet 500 mg PO Q6H PRN (Reason: fever or pain) Qty: 30 0RF doxycycline hyclate 100 mg capsule 100 mg PO BID Qty: 14 0RF promethazine-DM 6.25-15 mg/5 mL syrup 5 ml PO Q6H PRN (Reason: cough) Qty: 120 0RF ibuprofen 800 mg tablet 800 mg PO Q6H PRN (Reason: pain) Qty: 20 0RF hydroxyzine HCl 50 mg tablet 50 mg PO BID PRN (Reason: anxiety) Qty: 30 0RF acetaminophen [Tylenol Extra Strength] 500 mg tablet 1,000 mg PO QID PRN (Reason: pain) Qty: 30 0RF rizatriptan [Maxalt[employer]] 10 mg tablet,disintegrating 10 mg PO Q2H PRN (Reason: migraine headache) Qty: 20 0RF Rx Instructions: do not exceed 3 doses per 24 hrs diphenhydramine HCl [Benadryl] 25 mg capsule 25 mg PO Q8H PRN (Reason: allergic symptoms) Qty: 30 0RF clonazepam 0.5 mg tablet 1 mg PO BID PRN (Reason: anxiety) magnesium hydroxide [Milk of Magnesia] 400 mg/5 mL suspension 20 ml PO TID PRN (Reason: constipation) Qty: 355 0RF fluconazole 150 mg tablet 150 mg PO Q3D Qty: 2 0RF Rx Instructions: may repeat second dose 72 hrs after first dose if symptoms persist Referrals: Leonor Melvin FNP-C [Primary Care Provider] - In 1 week Problem List Clinical Impression: Anxiety Patient/Caregiver Discharge Instructions Discharge Activity: activity as tolerated Education Materials: ED Anxiety Reaction Additional Instructions: Thank you for the opportunity for serving you today. You are stable for discharged . You are advised to: Follow-up with your PCP in 1 to 2 days Return to ED for worsening of symptoms Increase oral fluids Take medication as prescribed by your PCP your clonazepam Print Language: Frisian Stand Alone Forms: Trish Award Info., Patient Portal Info Letter PA/[employer] Supervising Physician PA/[employer] Supervising Physician: MD Jose
[2025-02-28] MEDS: DIAZEPAM 5 MG TABLET PO (17:21)
[2025-02-28] MEDS: ACETAMINOPHEN 500 MG TABLET 1000 MG PO (17:21)
[2025-02-28 17:53] LABS: Basophils # (Auto) 0.1 Thou/mm3 (0.0-0.2); Basophils % (Auto) 1 % (0-2.5); Eosinophils # (Auto) 0.2 Thou/mm3 (0.0-0.5); Eosinophils % (Auto) 2 % (0-10); Hematocrit 37.3 % (36.0-46.0); Hemoglobin 13.1 g/dL (12.0-16.0); Immature Granulocytes Auto 0.01 Thou/mm3 (0.00-0.00); Lymphocytes # (Auto) 2.3 Thou/mm3 (1.0-4.8); Lymphocytes % (Auto) 36 % (10-50); Mean Corpuscular HGB Conc 35.1 g/dl (31.0-37.0); Mean Corpuscular Hemoglobin 30.3 pg (25.0-35.0); Mean Corpuscular Volume 86 fL (80-100); Monocytes # (Auto) 0.4 Thou/mm3 (0.0-0.8); Monocytes % (Auto) 7 % (0-12); Neutrophils # (Auto) 3.4 Thou/mm3 (1.8-7.7); Neutrophils % (Auto) 54 % (37-80); Nucleated Red Blood Cell # 0.00 Thou/mm3 (0.00-0.00); Nucleated Red Blood Cell % 0 /100 WBC (0); Platelet Count 197 Thou/mm3 (140-440); RDW Standard Deviation 38.4 fL (36.4-46.3); Red Blood Count 4.32 Miln/mm3 (4.00-5.20); White Blood Count 6.3 Thou/mm3 (3.6-11.0)
[2025-02-28 18:09] LABS: Alanine Aminotransferase 22 U/L (10-49); Albumin, Serum 4.2 gm/dL (3.5-5.0); Albumin/Globulin Ratio 1.3 (1.2-2.2); Alkaline Phosphatase 92 U/L (46-116); Anion Gap 11 (7-16); Aspartate Amino Transferase 25 U/L (0-34); BUN/Creatinine Ratio 15 Ratio (12-20); Bilirubin,Total 0.3 mg/dL (0.3-1.2); Blood Urea Nitrogen 9 mg/dL (9-23); Calcium 9.6 mg/dL (8.3-10.6); Calcium (Corrected) 9.6 mg/dL (8.5-10.1); Carbon Dioxide 23.0 mMol/L (20.0-31.0); Chloride 107 mMol/L (98-107); Creatinine (Component) 0.6 mg/dL (0.6-1.3); Estimated Creatinine Clearance 98.9 mL/min (>60); Globulin 3.2 gm/dL (2.3-3.5); Glucose 94 mg/dL (74-106); Magnesium 1.8 mg/dL (1.6-2.6); Osmolality,Calculated 279 (275-295); Potassium 3.7 mMol/L (3.4-5.1); Sodium 141 mMol/L (136-145); Total Protein 7.4 gm/dL (5.7-8.2); Troponin I < 0.020 ng/mL (0.0-0.045); eGFR > 60 See Note
[2025-02-28 18:53] LABS: Collection Type, Urine Clean Catch
[2025-02-28 19:20] LABS: Bacteria,Urine Rare; Bilirubin,Urine Negative (Negative); Blood,Urine Negative (Negative); Clarity,Urine Clear (Clear/Hazy); Color,Urine Colorless (Lt Yel-Yel); Culture Indicated,Urine Not Indicated; Glucose, Urine Negative (Negative); Ketones,Urine Negative (Negative); Leukocyte Esterase,Urine Negative (Negative); Nitrite,Urine Negative (Negative); PH,Urine 6.5 (5.0-7.0); Protein,Urine Negative (Neg - Trace); RBC,Urine < 1 /hpf (0-3); Specific Gravity,Urine 1.003 (1.001-1.035); Squamous Epithelial Cell,Urine 1 /hpf (0-5); Urobilinogen,Urine Negative mg/dL (0.0-1.0); WBC,Urine < 1 /hpf (0-5)
== END 2025-02-28 20:11 | disposition home or self-care (01) ==
PROVIDERS: Nurse Practitioner Family; Emergency Provider Emergency Medicine
DX: F41.9 Anxiety disorder, unspecified (principal); R07.9 Chest pain, unspecified; I10 Essential (primary) hypertension
CPT/HCPCS: 36415; 80053; 81001; 83735; 84484; 85025; 93005; 99282; A9270